=== PATIENT | male | born 1960 | race Caucasian/White ===

== ENCOUNTER 2022-09-17 09:50 | Outpatient (CLI) | payer BC, SELFPAY ==
[2022-09-17 19:46] LABS: Alanine Aminotransferase 40 U/L (6-50); Albumin Level 4.2 g/dL (3.5-5.1); Alkaline Phosphatase 76 U/L (38-126); Anion Gap 4 mmol/L (8-16); Aspartate Amino Transferase 61 U/L (17-59); Bilirubin,Total 0.6 mg/dL (0.2-1.3); Blood Urea Nitrogen 22 mg/dL (9-20); Carbon Dioxide 30 mmol/L (22-30); Chloride 102 mmol/L (98-107); Estimated Glomerular Filt Rate > 60; Glucose 92 mg/dL (65-110); Potassium 4.1 mmol/L (3.4-5.0); Sodium 136 mmol/L (137-145)
== END 2022-09-17 09:51 | disposition home or self-care (01) ==
LOC: ANHGOSHLAB 09:51
PROVIDERS: PCP Family Medicine; Visit Provider Family Medicine
DX: E78.5 Hyperlipidemia, unspecified (principal); I10 Essential (primary) hypertension; Z79.899 Other long term (current) drug therapy
CPT/HCPCS: 36415; 80053

== ENCOUNTER 2023-07-19 16:46 | Emergency (ER) | payer BC, SELFPAY ==
[2023-07-19 17:01] VITALS: BP 133/81; PULSE 100; RESP 12; TEMP 39.5; O2SAT 95
--- NOTE | 2023-07-19 17:14 | ED.URI ---
HPI - URI/Sore Throat General Chief Complaint: Upper Respiratory Infection Stated Complaint: fever,achiness Time Seen by Provider: 07/19/23 17:08 Source: patient and RN notes reviewed Mode of arrival: ambulatory Limitations: no limitations History of Present Illness HPI Narrative: Patient presents today complaining of fever up to 102, chills, congestion, postnasal drip. Symptoms began yesterday. Denies cough, sore throat, shortness of breath. He has been taking [place] cold and flu without much relief. He took a home COVID-19 test today that was negative. Related Data Home Medications Medication Instructions Recorded Confirmed calcium carbonate 600 mg calcium 600 mg PO DAILY 03/12/21 07/19/23 (1,500 mg) tablet (Calcium) multivitamin (Multiple Vitamins 1 tablet PO DAILY 03/12/21 07/19/23 tablet) Allergies Allergy/AdvReac Type Severity Reaction Status Date / Time No Known Allergies Allergy Unknown Verified 07/19/23 16:56 Review of Systems Review of Systems: CONSTITUTIONAL: + body aches, chills, fever. EYES: Denies visual changes, redness, or discharge. ENT: Denies rhinorrhea, sore throat, or otalgia.+ congestion, postnasal drip CARDIOVASCULAR: Denies chest pain, palpitations, or edema. RESPIRATORY: Denies cough or dyspnea. GASTROINTESTINAL: Denies abdominal pain, nausea, vomiting, or diarrhea. GENITOURINARY: Denies dysuria or hematuria. SKIN: Denies rash, itching, or wounds. MUSCULOSKELETAL: Denies back pain, joint pain, or myalgia. NEUROLOGIC: Denies headache, numbness, tingling, or weakness. PSYCH: Denies depression or anxiety. [facility] Past Medical History Medical History BPH NOS w/o ur obs/LUTS Depression Dyslipidemia Elevated lipids Environmental allergies Essential (primary) hypertension Hypogonadism in male KASH (obstructive sleep apnea) Recurrent herpes labialis Unspecified osteoarthritis, unspecified site Surgical History Surgical History History of bunionectomy (~1986) around History of knee surgery (~11/2015) left knee - 11/2015, left knee redone-03/24/22 History of vasectomy (~1998) around 1989 [place] teeth extracted (~1979) Family History Family History Other Family history of cardiovascular disease Hypertension Social History Social History Smoking status: Never smoker Second hand tobacco smoke exposure: No Alcohol intake: current Alcohol use details: consumes 2 drinks of beer or wine occasionally Substance use: never Substance use type: does not use Lack of Transportation: No Lack of Food: Never True Current Housing: I Have Housing Concerned About Future Housing: No Difficulty Paying Gas/Electric Bills: No Difficulty Paying for Meds: No Currently Unemployed: No Education: Bachelor's Degree Difficulty w/ Childcare or Family Care: No Gender identity (if verbalized by the patient): Male Comments At time of signature, I have reviewed and agree with nursing past medical, surgical, social and family history unless otherwise noted. Please see nursing chart for further information. There is no relevant family history pertinent to the presenting complaint Exam Narrative: GENERAL: Mildly ill-appearing, well-nourished, and in no acute distress. HEAD: Normocephalic, atraumatic. EYES: EOMI. No redness or drainage. Conjunctivae normal. ENT: Mucous membranes pink and moist. Nares congested. No rhinorrhea. TMs normal bilaterally. Throat normal. Uvula midline. NECK: Normal AROM. Supple. No lymphadenopathy. CHEST: No respiratory distress. Clear to auscultation. HEART: Regular rate and rhythm. No murmur appreciated. Normal peripheral pulses. EXTREMITIES: Normal range of motion. No ayse
== END 2023-07-19 17:27 | disposition home or self-care (01) ==
PROVIDERS: Emergency Provider Nurse Practitioner; PCP Family Medicine
DX: B34.9 Viral infection, unspecified (principal); N40.0 Benign prostatic hyperplasia without lower urinary tract symptoms; E78.5 Hyperlipidemia, unspecified; I10 Essential (primary) hypertension; M19.90 Unspecified osteoarthritis, unspecified site; F32.A Depression, unspecified; Z98.52 Vasectomy status
CPT/HCPCS: 87804; 99213; G0463

== ENCOUNTER 2024-11-05 00:34 | Day surgery (SDC) | payer BC, SELFPAY ==
[2024-10-29 06:41] VITALS: BMI 31.3
--- OUTSIDE RECORDS SUMMARY | 2024-11-05 00:38 | XMS_ITS | Encounter Summary ---
Author Organization [facility] Address [address] [place] [address]. [place], [place] [id number] [place] [address] Care Team Providers Care Swim Coach Name Role Phone Wander Nguyen MD Unavailable [phone] Miguel Santos MD Primary Care Provider Encounter Details Date Type Department Care Team (Late Contact Info) Description 03/12/2022 EngineLab Message Enc [facility] [facility], [address] [phone] [facility], [facility] Provider lab results Social History Tobacco Use Types Packs/Day Years Used Date Smoking Tobacco: Never Smokeless Tobacco: Never Alcohol Use Standard Drinks/Week Comments Yes 0 (1 standard drink = 0.6 oz pur e alcohol) Socially PHQ-2 Answer Date Recorded PHQ-2 Score - If the patient scores above 3, please move on to questions 3-9 0 12/19/2020 Sex and Gender Information Value Date Recorded Sex Assigned at Not on file Legal Sex Male 11:35 PM CDT Gender Identity Male 11/12/2021 4:53 AM MANAGER ARMY Sexual Orientation Straight 11/12/2021 4: 53 AM MANAGER ARMY 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, [address] [phone] Wander Nguyen MD [address] [place] [address] 06/01/2025 10:20 AM CDT Office Visit [facility] [address] [place] [address] Javier Johnson DO [address] [place] [address] documented as of this encounter Visit Diagnoses Not on filedocumented in this encounter Care Teams Swim Coach Relationship Specialty Start Date End Date Miguel Santos MD [address] [place] [address] PCP - General FAMILY PRACTICE 09/22/18 Wander Nguyen MD [address] [place] [address] [place] [employer] Stapler CARDIOVASCULAR DISEASE 03/06/16 documented as of this encounter
--- OUTSIDE RECORDS SUMMARY | 2024-11-05 00:38 | XMS_ITS | Clinical Summary ---
Author Organization [facility] Address [address], [facility] [address] [place] [address] Phone Care Team Providers Care Power Tong Operator Name Role Phone Miguel Santos MD Primary Care Provider Social History Tobacco Use Types Packs/Day Years Used Date Smoking Tobacco: Never Assessed Sex and Gender Information Value Date Recorded Sex Assigned at Not on file Legal Sex Male 8:05 AM CDT Gender Identity Not on file Sexual Orientation Not on file Plan of Treatment Health Maintenance Due Date Last Done Comments Hepatitis C Virus (HCV) Screening 1958 Cologuard 2008 Immunochemical Fecal Occult Blood 2008 Pneumococcal Immunization (50+ years) (1 of 1 - PCV) 2008 Zoster Immunization (1 of 2) 2008 PSA Discussion 2013 Influenza Immunization (#1) 2024 09/0 06/2020, 06/09/2019, 06/23/2018, Additional history exists SARS-COV-2 Immunization ( season) 2024 08/05/2021, 12/17/2020 Colonoscopy 07/26/2024 07/26/2019, 08/07/2009 Colorectal Cancer Screening 07/26/2024 Respiratory Syncytial Virus (RSV) Immunization (Adult) (1 - 1-dose 75+ series) 2033 07/26/2019, 08/07/2009 DTaP/Tdap/Td Immunization Discontinued 10/24/2014, 10/2003 TdaP Immunization Completed 10/24/2014 Hepatitis B Immunization Aged Out No longer eligible based on patient's age to complete this topic Meningococcal Immunization (ACWY) Aged Out No longer eligible based on patient's age to complete this topic Rotavirus Immunization Aged Out No lo nger eligible based on patient's age to complete this topic Procedures Procedure Name Priority Date/Time Associated Diagnosis Comments HM COLONOSCOPY Routine 07/26/2019 from Last 3 Months or Most Recently Relevant to Health Maintenance Results * HM COLONOSCOPY (07/26/2019) Alexander Martines DO PROCEDURE/MINOR SURGICAL ORDERA BLES Final Result from Last 3 Months or Most Recently Relevant to Health Maintenance Insurance Care Teams Power Tong Operator Relationship Specialty Start Date End Date Miguel Santos MD PCP - General Family Medicine 07/29/19
--- OUTSIDE RECORDS SUMMARY | 2024-11-05 00:38 | XMS_ITS | Referral Summary ---
Author Organization [facility] Address [address] [place] [address] Care Team Providers Care Chief Crew Scheduler Name Role Phone Miguel Santos MD Primary Care Provider Michael Green MD Unavailable [phone] Source Comments [facility],non-owned Affiliates and Associated Physician Practices is amultiple site organization consisting of ambulatory clinics and hospital sitesin [place], [place], [place] and [place]. This disclosure is being madepursuant to the Care Everywhere program and may not contain all information available regarding this patient. Last updated 18.[facility] Allergies No known active allergies Medications * Be aware that medications may not be up to date on this document. Alwaysverify current medications with the patient. Medication Sig Dispensed Refills Start Date End Date Status citalopram (CELEXA) 40 MG tablet 1 (one) tablet once daily 11/13/2021 Active finasteride (PROSCAR) 5 MG tablet once daily 12/24/2021 Active fluticasone propionate (FLONASE) 50 MCG/ACT nasal spray 1 (one) spray 2 times daily 11/13/2021 Active montelukast (SINGULAIR) 10 MG tablet at bedtime 11/13/2021 Active simvastatin (ZOCOR) 40 MG tablet at bedtime 10/26/2021 Active meloxicam (MOBIC) 7.5 MG tablet Take 1 (one) tablet by mouth 2 times daily as needed 11/12/2021 Active lisinopril (PRINIVIL; ZESTRIL) 5 MG tablet Take 1 (one) tablet by mouth once daily 02/14/2022 Active oxyBUTYnin CR 24hr (Ditropan-XL) 5 MG tablet Take 1 (one) tablet by mouth at bedtime 02/16/2024 Active Active Problems Problem Noted Date Diagnosed Date Status post left knee replacement 04/19/2022 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 2-4 times a month 03/29/2022 Q2: How many drinks containi ng alcohol do you have on a typical day when you are drinking? 1 or 2 03/29/2022 Q3: How often do you have si x or more drinks on one occasion? Never 03/29/2022 PHQ-2 Answer Date Recorded Patient Health Questionnaire-2 Score 0 03/25/2024 Sex and Gender Information Value Date Recorded Sex Assigned at Male 10/23/2021 7:10 PM PACKER INSULATION Gender Identity Male 10/23/2021 7:10 PM PACKER INSULATION Sexual Orientation Not on file Last Filed Vital Signs Vital Sign Reading Time Taken Comments Blood Pressure 107/73 03/29/2022 11:12 PM CDT Pulse 59 03/29/2022 11:12 PM CDT Temperature 36.6 ??C (97.88 ??F) 03/29/2022 11:12 PM CDT Respiratory Rate 16 03/30/2022 2:58 AM CDT Oxygen Saturation 98% 03/29/2022 11:12 PM CDT Inhaled Oxygen Concentration - - Weight 96.9 kg (213 lb 9.6 oz) 04/01/2024 10:21 AM CDT Height 180.3 cm (5' 11 ) 04/01/2024 10:21 AM CDT Body Mass Index 29.79 04/01/2024 10:21 AM CDT Functional Status Functional Status Response Date of Assess ment Is person deaf or have serious hearing difficult y? No 03/29/2022 Is person blind or have serious difficulty seein g? No 03/29/2022 Does person have serious dif ficulty walking/climbing stairs? Yes 03/29/2022 Does person have difficulty dressing/bathing? Ye s 03/29/2022 Cognitive Status Response Date of Assessm ent Does person have difficulty concentrating/remembering/making decisions? No 03/29/2022 Plan of Treatment Not on file Medical Devices Implanted Type Area Platform Inspector Device Identifier Shelf Expiration Date Model / Serial / Lot Igor Bone [place]-G Hv 40/20 Implanted:Qty: 2 on 03/29/2022 by Michael Green MD at [facility] Left: Knee [employer] 05/29/2023 [id number] / / [id number] Brng [id number] Vngrd 360 Pe Kn Post Implanted:Qty: 1 on 03/29/2022 by Michael Green MD at [facility] Left: Knee [employer] 16mm x79/83 mm 05/31/2026 [id number] / / [id number] Stem Tib 80mm 16mm Vngrd 360 Kn Spline Implanted:Qty: 1 on 03/29/2022 by Michael Green MD at [facility] Left: Knee [employer] 12/27/2029 [id number] / / [id number] Block Aug Vngrd 360 [id number] Kn Fem Rmll Implanted:Qty: 1 on 03/29/2022 by Michael Green MD at [facility] Left: Knee [employer] 03/29/2029 [id number] / / [id number] Block Aug Vngrd 360 Unv [id number] Kn Fem Implanted:Qty: 1 on 03/29/2022 by Michael Green MD at [facility] Left: Knee [employer] 01/27/2029 [id number] / / [id number] Aug Tib [id number] Vngrd 360 Kn Lt Mdl Rl Implanted:Qty: 1 on 03/29/2022 by Michael Green MD at [facility] Left: Knee [employer] 07/29/2025 [id number] / / [id number] Tray Tib 79mm Vngrd 360 Kn Por Rev Sys Implanted:Qty: 1 on 03/29/2022 by Michael Green MD at [facility] Left: Knee [employer] 08/29/2030 [id number] / / [id number] Splined Knee Stem V2 With Screw 12 Mm 120 Mm Implanted:Qty: 1 on 03/29/2022 by Michael Green MD at [facility] Left: Knee [employer] 06/29/2029 [id number] / / [id number] Aug Tib 31mm 31mm Med Cone Kn Trb Mtl Implanted:Qty: 1 on 03/29/2022 by Michael Green MD at [facility] Left: Knee [employer] 02/26/2026 [id number] / / [id number] Cmpnt Fem Kn Lt Vngrd 360 Por 75mm Rev Implanted:Qty: 1 on 03/29/2022 by Michael Green MD at [facility] Left: Knee [employer] 07/29/2028 [id number] / / [id number] Procedures Procedure Name Priority Date/Time Associated Diagnosis Comments COMPREHENSIVE METABOLIC PANEL STAT 03/05/2022 7:26 AM CDT Preop examination from Last 3 Months or Most Recently Relevant to Health Maintenance Results * (ABNORMAL) COMPREHENSIVE METABOLIC PANEL (03/05/2022 7:26 AM CDT) Glucose 107(H) 70 - 105 mg/dL 03/05/2022 7:49 AM CDT [facility] Sodium 141 136 - 145 mmol/L 03/05/2022 7:49 AM CDT [facility] Potassium 4.3 3.5 - 5.1 mmol/L 03/05/2022 7:49 AM CDT [facility] Chloride 110(H) 98 - 107 mmol/L 03/05/2022 7:49 AM CDT [facility] CO2 23 23 - 31 mmol/L 03/05/2022 7:49 AM CDT [facility] Calcium 9.1 8.4 - 10.4 mg/dL 03/05/2022 7:49 AM CDT [facility] Anion Gap 8 8 - 18 mmol/L 03/05/2022 7:49 AM CDT [facility] BUN 24 8.4 - 25.7 mg/dL 03/05/2022 7:49 AM CDT [facility] Creatinine 1.14 0.72 - 1.25 mg/dL 03/05/2022 7:49 AM CDT [facility] Alkaline Phosphatase 85 40 - 150 U/L 03/05/2022 7:49 AM CDT [facility] ALT 38 0 - 61 U/L 03/05/2022 7:49 AM CDT [facility] AST 42(H) 5 - 34 U/L 03/05/2022 7:49 AM CDT [facility] Protein Total 6.5 6.4 - 8.3 gm/dL 03/05/2022 7:49 AM CDT [facility] Albumin 4.0 3.2 - 4.6 gm/dL 03/05/2022 7:49 AM CDT [facility] Bilirubin Total 0.5 0.2 - 1.2 mg/dL 03/05/2022 7:49 AM CDT [facility] eGFR by CKD-EPI 72(L) >=90 mL/min/1.7 3 m2 03/05/2022 7:49 AM CDT [facility] Blood BLOOD SPECIMEN / Unknown Venipuncture / Unknown 03/05/2022 7:26 AM CDT 03/05/2022 7:30 AM CDT Nano Brooks PRACTICE ADMINISTRATOR-UPHOLSTERER APPRENTICE LAB - CHEMIS TRY ORDERABLES [facility] [address] [place] [address] from Last 3 Months or Most Recently Relevant to Health Maintenance Advance Directives Documents on File Type Date Recorded Patient Private Mortgage Banker Safe Expl anation Adv Directive/Living Will/POA 04/05/2022 1:17 PM * Full Code (Latest Code Status on File) Date Activated Date Inactivated Comments 03/29/2022 4:43 PM 03/30/2022 4:21 PM Care Teams Chief Crew Scheduler Relationship Specialty Start Date End Date Miguel Santos MD [address] [place] [address] PCP - General Family Medicine 01/10/22 [place] [id number] [address] Orthopedic Surgery 01/10/22
--- OUTSIDE RECORDS SUMMARY | 2024-11-05 00:38 | XMS_ITS | Referral Summary ---
Author Organization [facility] Address [address] [place] [address] Care Team Providers Care Hazardous Waste Technician Name Role Phone Miguel Santos MD Primary Care Provider Allergies No known active allergies Medications citalopram (CeleXA) 40 mg tablet TK 1 T PO QD 0 Active simvastatin (ZOCOR) 40 mg tablet TK 1 T PO QD IN THE [place]OH[place] 0 Active montelukast (SINGULAIR) 10 mg tablet TAKE 1 TABLET BY MOUTH EVERY NIGHT AT BEDTIME GENERIC EQUIVALENT FOR SINGULAIR 0 Active fluticasone propionate (FLONASE) 50 mcg/actuation nasal spray U ONE SPRAY IEN ONCE D 0 Active finasteride (PROSCAR) 5 mg tablet 1 tablet (5 mg total) Active meloxicam (MOBIC) 7.5 mg tablet Take 1 tablet (7.5 mg total) by mouth 2 (two) times a day as needed for pain 180 tablet 2 Active lisinopriL (PRINIVIL,ZESTR [place]) 5 mg tablet 4 Active Active Problems Problem Noted Date Diagnosed Date Essential hypertension 01/15/2024 Hyperlipidemia 01/15/2024 Loosening of prosthesis of left knee joint 01/10 CPAP (continuous positive airway pressure) shira vila 06/30/2018 Status post total knee replacement 12/26/2017 Fatigue 07/08/2016 Allergic rhinitis 01/24/2016 Obesity 11/02/2015 Arthritis 10/30/2015 KASH (obstructive sleep apnea) 10/30/2015 Social History Tobacco Use Types Packs/Day Years Used Date Smoking Tobacco: Never Tobacco Cessation:Counseling Given: Not Answered Alcohol Use Standard Drinks/Week Comments Yes 0 (1 standard drink = 0.6 oz pur e alcohol) Personal Safety Answer Date Recorded Getting School Help Needed Not on file 09/19 Sex and Gender Information Value Date Recorded Sex Assigned at Not on file Legal Sex Male 9:09 AM SEARCH STRATEGIST Gender Identity Male 02/23/2022 9:08 AM CDT Sexual Orientation Straight 02/23/2022 9: 08 AM CDT 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 Not on file Not on file Last Filed Vital Signs Vital Sign Reading Time Taken Comments Blood Pressure 133/78 01/15/2024 11:18 AM CDT Pulse 59 01/15/2024 11:18 AM CDT Temperature 36.6 ??C (97.8 ??F) 01/15/2024 11:18 AM C DT Respiratory Rate 14 01/15/2024 11:18 AM CDT Oxygen Saturation 96% 01/15/2024 11:18 AM CDT Inhaled Oxygen Concentration - - Weight 104 kg (229 lb 4.8 oz) 01/15/2024 11:18 A M CDT Height 177.8 cm (5' 10 ) 01/15/2024 11:18 AM CDT Body Mass Index 32.9 01/15/2024 11:18 AM CDT Plan of Treatment Not on file Insurance [employer] Care Teams Hazardous Waste Technician Relationship Specialty Start Date End Date Miguel Santos MD PCP - General Family Practice 12/18/20
--- OUTSIDE RECORDS SUMMARY | 2024-11-05 00:38 | XMS_ITS | Clinical Summary ---
Author Organization [facility] Address [address] [place] [address] Care Team Providers Care Width Stripper Name Role Phone Miguel Santos MD Primary [...] Arthritis 10/30/2015 KASH (obstructive sleep apnea) 10/30/2015 Surgical History Surgery Date Site/Laterality Comments JOINT REPLACEMENT 11/24/2017 Left total knee Medical History Medical History Date Comments Hypercholesteremia Hypertension Depression DDD (degenerative disc disease), lumbar Lumbar facet arthropathy Lumbar stenosis Family History Medical History Relation Name Comments Arthritis Other Hypertension Other Stroke Other Relation Name Status Comments Other Social History Tobacco Use Types Packs/Day Years [...] on file Legal Sex Male 9:09 AM GASTROENTEROLOGY TECHNICIAN Gender Identity Male 02/23/2022 9:08 AM CDT Sexual Orientation Straight 02/23/2022 9: 08 AM CDT 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 Not on file Not on file Obstetrics History Last Filed Vital Signs Vital Sign Reading [...] 01/15/2024 11:18 AM CDT Plan of Treatment Health Maintenance Due Date Last Done Comments Colon Cancer Screening-Colonoscopy 1960 Depression Screening 1958 Fall Risk Assessment 1960 Hepatitis C Screening 1960 Prostate Cancer Screening-PSA 1958 Hepatitis B Screening 1976 Zoster Vaccine (1 of 2) 2008 Pneumococcal vaccine 65+ (1 of 1 - PCV) 2023 Well Visit 65+ 2023 Influenza Vaccine (#1) 2024 0, 06/10/2019, 06/09/2019, Additional history exists DTaP/Tdap/Td Vaccine (2 - Td or Tdap) 10/24/2024 10/24/2014, 10/06/2003 Insurance [employer] ID [employer] ID Care Teams Width Stripper Relationship Specialty Start Date End Date Miguel Santos MD PCP - General Family Practice 12/18/20
--- OUTSIDE RECORDS SUMMARY | 2024-11-05 00:38 | XMS_ITS | Clinical Summary ---
Author Organization [facility] Address [address] [place] [address]. [place] [address] [place] [address] Care Team Providers Care Tick Eradicator Name Role Phone Wander Nguyen MD Unavailable [phone] Miguel Santos MD Primary Care Provider Allergies No known active allergies Medications Calcium Citrate-Vitamin D (CALCIUM + D OR) Take 1 tablet by mouth daily. 5 Active Multiple Vitamins-Minera ls (MULTIVITAMIN ADULT) Tab Take 1 tablet by mouth daily. 5 Active simvastatin 40 MG tablet simvastatin tablet 40 mg; take 1 tablet by mouth at bedtime; 0; -Aug-2015; Active 5 Active finasteride 5 MG tablet Take 1 tablet (5 mg total) by mouth daily. 8 Active fluticasone propionate 50 MCG/ACT nasal sprayIndication s:Allergic rhinitis 1 spray by Nasal route 2 (two) times a day. 1 mL 3 0 Active montelukast 10 MG tabletIndicatio ns:Allergic rhinitis TAKE 1 TABLET BY MOUTH EVERY NIGHT AT BEDTIME GENERIC EQUIVALENT FOR SINGULAIR 90 tablet 2 1 Active meloxicam 7.5 MG tablet Take 1 tablet (7.5 mg total) by mouth 2 (two) times daily as needed. 2 Active lisinopril (PRINIVIL) 5 MG tablet Take 1 tablet (5 mg total) by mouth daily. 90 tablet 1 2 Active vitamin E 450 MG (1000 UT) Cap Take 1 capsule (1,000 Units total) by mouth daily. 3 Active citalopram (CELEXA) 20 MG tablet Take 1 tablet (20 mg total) by mouth daily. 3 Active MYRBETRIQ 50 MG 24 hr tablet Take 1 tablet (50 mg total) by mouth daily. 4 Active Active Problems Problem Noted Date Diagnosed Date History of total left knee replacement 0 CPAP (continuous positive airway pressure) depen dence 06/30/2018 Fatigue 07/08/2016 Allergic rhinitis 01/24/2016 Obesity 11/02/2015 Arthritis 10/30/2015 KASH (obstructive sleep apnea) 10/30/2015 Essential hypertension Hyperlipidemia Immunizations Name Administration Dates Next Due Afluria 36 MONTHS+ (Prefilled Syringe IIV4) 02/2019 Flucelvax 6 Months+ (Prefilled Syringe) 06/18/20 Influenza Adult (Generic) 06/23/2018,07/07/2017, 07/16/2016 Td (Tenivac) preservative free 10/06/2003 Tdap (Generic) 10/24/2014 Family History Medical History Relation Comments Hypertension Mother Stroke Mother Relation Status Comments Father Maternal Grandfather Maternal Grandmother Mother (Age 91) Paternal Grandfather Paternal Grandmother Social History Tobacco Use Types Packs/Day Years Used Date Smoking Tobacco: Never Smokeless Tobacco: Never Tobacco Cessation:Counseling Given: Yes Alcohol Use Standard Drinks/Week Comments Yes 0 (1 standard drink = 0.6 oz pur e alcohol) Socially PHQ-2 Answer Date Recorded Patient Health Questionnaire-2 Score 0 05/06/2024 Sex and Gender Information Value Date Recorded Sex Assigned at Not on file Legal Sex Male 11:35 PM CDT Gender Identity Male 11/12/2021 4:53 AM HOST AND HOSTESS Sexual Orientation Straight 11/12/2021 4: 53 AM HOST AND HOSTESS 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 Not on file Not on file Last Filed Vital Signs Vital Sign Reading Time Taken Comments Blood Pressure 115/84 05/06/2024 10:17 AM CDT Pulse 65 05/06/2024 10:17 AM CDT Temperature 36.6 ??C (97.8 ??F) 05/06/2024 10:17 AM C DT Respiratory Rate 14 05/06/2024 10:17 AM CDT Oxygen Saturation 96% 05/06/2024 10:17 AM CDT ra Inhaled Oxygen Concentration - - Weight 100.7 kg (222 lb) 05/06/2024 10:17 AM CDT Height 177.8 cm (5' 10 ) 05/06/2024 10:17 AM CDT Body Mass Index 31.85 05/06/2024 10:17 AM CDT Plan of Treatment Upcoming Encounters Date Type Department Care Team (Late st Contact Info) Description 01/07/2025 10:30 AM CDT Office Visit [facility] [address] [facility] [place] [address] Wander Nguyen MD [facility] [place] [address] 06/01/2025 10:20 AM CDT Office Visit [facility] [address] [place] [address] Javier Johnson DO [address] [place] [address] Health Maintenance Due Date Last Done Comments Colorectal Cancer Screening Colonoscopy (10 Years) 1958 Hepatitis C 1976 Zoster Vaccines (1 of 2) 2008 Pneumococcal Vaccine: 65+ Years (1 of 1 - PCV) 2023 COVID-19 Vaccine ( - season) 2024 Influenza Adult (#1) 2024 06/18/2020, 06/10/2019, 06/23/2018, Additional history exists PHQ-2 (Physician [place]) 10/06/2024 05/06/2024 DTaP, Tdap and Td Vaccines (2 - Td or Tdap) 10/24/2024 10/24/2014, 10/06/2003 PHQ-2 (Physician [place]) 05/06/2025 05/06/2024 RSV Immunization or 60+ Years (1 - 1-dose 75+ series) 2033 Meningococcal B Vaccine Aged Out No l onger eligible based on patient's age to complete this topic Meningococcal Vaccine Aged Out No tiffany petra eligible based on patient's age to complete this topic RSV Immunizations Under 20 Months Aged Out No longer eligible based on patient's age to complete this topic Insurance Care Teams Tick Eradicator Relationship Specialty Start Date End Date Miguel Santos MD [address] [address] PCP - General FAMILY PRACTICE 09/22/18 Wander Nguyen MD [address] [address] [place] [employer] [facility] CARDIOVASCULAR DISEASE 03/06/16
--- OUTSIDE RECORDS SUMMARY | 2024-11-05 00:38 | XMS_ITS ---
Author Organization Unknown Address [address] [place], [place] [id number] Phone Care Team Providers Care Fresco Artist Name Role Phone NICHOLAS YOST CC Attending Unavailable Immunization Immunization Date Status Additional Notes Code Code System COVID-19 vaccine, vector-nr, rS-Ad26, PF, 0.5 mL 12/17/2020 Completed 212 CVX COVID-19, mRNA, LNP-S, PF, 1 00 mcg/0.5mL dose or 50 mcg/0.25mL dose 08/05/2021 Completed 207 CVX zoster recombinant 08/05/2021 Completed 187 CVX zoster recombinant 05/28/2021 Completed 187 CVX Influenza, MDCK, quadrivalen t, PF 06/14/2020 Completed 171 CVX Influenza, split virus, quadrivalent, PF 06/09/2019 Completed 150 CVX Influenza, split virus, quadrivalent, PF 06/23/2018 Completed 150 CVX Influenza, split virus, quadrivalent, PF 07/07/2017 Completed 150 CVX Influenza, split virus, quadrivalent, PF 07/16/2016 Completed 150 CVX Tdap 10/24/2014 Completed 115 CVX Td (adult), 5 Lf tetanus toxoid, preservative free, adsorbed 10/06/2003 Completed 113 CVX Social History Type Status Start Date End Date Code Code Syst em Smoking History Never smoker (Never Smoked) 768108280 SNOMED CT Sex Male Assessment You had the following problems:STRAIN OF MUSCLE AND TENDON OF BACK WALL OF THORAX, INITIAL ENCOUNTERENCOUNTER FOR OTHER SPECIFIED AFTERCARE Hospital Discharge Instructions Should you have any questions prior to discharge, please contact a member of your healthcare team. If you have left the hospital and have any questions, please contact your primary care physician. Reason For Referral No Data Found Problems Problem Start Date Resolved Date Status Code Code System STRAIN OF MUSCLE AND TENDON OF BACK WALL OF THORAX, INITIAL ENCOUNTER active 563227744 SNOMED-CT ENCOUNTER FOR OTHER SPECIFIE D AFTERCARE active 679116744 SNOMED-CT Allergies and Adverse Reactions Allergy Substance Reaction Severity Start Date Concern Status Co de Code System No Known Drug Allergy Mild Active No Known Drug Allergies Active [id number] SNOMED-CT Plan of Treatment No Data Found Encounters Encounter Diagnosis Start Date Code Code Sys tem History and physical examination, pre-employment 06/18 [id number] SNOMED-CT Personal Care Team Section Performer Name Performer Role Active Date Inactive Da te
--- OUTSIDE RECORDS SUMMARY | 2024-11-05 00:38 | XMS_ITS | Patient Health Summary ---
Author Organization [facility] Address [address] [place] [address] Care Team Providers Care Meeting Specialist Name Role Phone Miguel Sanots MD Primary Care Provider Michael Green MD Unavailable [phone] Note from [facility],non-owned Affiliates and Associated Physician Practices is amultiple site organization consisting of ambulatory clinics and hospital sitesin [place], [place], [place] and [place]. This disclosure is being madepursuant to the Care Everywhere program and may not contain all information available regarding this patient. Last updated 18.[facility] Allergies No known active allergies Medications * Be aware that medications may not be up to date on this document. Alwaysverify current medications with the patient. * citalopram (CELEXA) 40 MG tablet(Started 11/13/2021) 1 (one) tablet once daily * finasteride (PROSCAR) 5 MG tablet(Started 12/24/2021) once daily * fluticasone propionate (FLONASE) 50 MCG/ACT nasal spray(Started 11/13/2021) 1 (one) spray 2 times daily * montelukast (SINGULAIR) 10 MG tablet(Started 11/13/2021) at bedtime * simvastatin (ZOCOR) 40 MG tablet(Started 10/26/2021) at bedtime * meloxicam (MOBIC) 7.5 MG tablet(Started 11/12/2021) Take 1 (one) tablet by mouth 2 times daily as needed * lisinopril (PRINIVIL; ZESTRIL) 5 MG tablet(Started 02/14/2022) Take 1 (one) tablet by mouth once daily * oxyBUTYnin CR 24hr (Ditropan-XL) 5 MG tablet(Started 02/16/2024) Take 1 (one) tablet by mouth at bedtime Active Problems Problem Noted Date Diagnosed Date [...] Sex Assigned at Male 10/23/2021 7:10 PM MANAGER HEALTH Gender Identity Male 10/23/2021 7:10 PM MANAGER HEALTH Sexual Orientation Not on file Last Filed [...] Mass Index 29.79 04/01/2024 10:21 AM CDT Medical Devices Implanted Type Area Medical Physics Professor Device Identifier Shelf Expiration Date Model / Serial / Lot Igor Bone [place]-G Hv 40/20 Implanted:Qty: 2 on 03/29/2022 by Michael Green MD at [facility] Left: Knee [employer] 05/29/2023 [id number] / / [id number] Brng [id number] Vngrd 360 Pe Kn Post Implanted:Qty: 1 on 03/29/2022 by Michael Green MD at [facility] Left: Knee [employer] 16mm x79/83 mm 05/31/2026 [id number] / / [id number] Stem Tib 80mm 16mm Vngrd 360 Kn Spline Implanted:Qty: 1 on 03/29/2022 by Michael Green MD at [facility] Left: Knee [employer] 12/27/2029 [id number] / / [id number] Block Aug Vngrd 360 [id number] Kn Fem Rmll Implanted:Qty: 1 on 03/29/2022 by Michael Green MD at [facility] Left: Knee [employer] 03/29/2029 [id number] / / [id number] Block Aug Vngrd 360 Unv [id number] Kn Fem Implanted:Qty: 1 on 03/29/2022 by Michael Green MD at [facility] Left: Knee [employer] 01/27/2029 [id number] / / [id number] Aug Tib [id number] Vngrd 360 Kn Lt Mdl Rl Implanted:Qty: 1 on 03/29/2022 by Michael Green MD at [facility] Left: Knee [employer] 07/29/2025 [id number] / / [id number] Tray Tib 79mm Vngrd 360 Kn Por Rev Sys Implanted:Qty: 1 on 03/29/2022 by Michael Green MD at [facility] Left: Knee [employer] 08/29/2030 [id number] / / [id number] Splined Knee Stem V2 With Screw 12 Mm 120 Mm Implanted:Qty: 1 on 03/29/2022 by Michael Green MD at [facility] Left: Knee [employer] 06/29/2029 [id number] / / [id number] Aug Tib 31mm 31mm Med Cone Kn Trb Mtl Implanted:Qty: 1 on 03/29/2022 by Michael Green MD at [facility] Left: Knee [employer] 02/26/2026 [id number] / / [id number] Cmpnt Fem Kn Lt Vngrd 360 Por 75mm Rev Implanted:Qty: 1 on 03/29/2022 by Michael Green MD at [facility] Left: Knee [employer] 07/29/2028 [id number] / / [id number] Procedures * XR KNEE LEFT 3VW(Performed 04/01/2024) Performed for History of revision of total replacement of left knee joint * XR KNEE LEFT 3VW(Performed 05/06/2023) Performed for Status post revision of total replacement of left knee * XR KNEE LEFT 3VW(Performed 06/20/2022) Performed for History of revision of total replacement of left knee joint * XR KNEE LEFT 3VW(Performed 04/19/2022) Performed for Status post left knee replacement * APHERESIS/TRANSFUSION ORDER(Performed 04/05/2022) * CULTURE TISSUE+GRAM STAIN(Performed 03/29/2022) Performed for Diagnosis unknown * CULTURE ANAEROBE(Performed 03/29/2022) Performed for Diagnosis unknown * CULTURE TISSUE+GRAM STAIN(Performed 03/29/2022) Performed for Diagnosis unknown * CULTURE ANAEROBE(Performed 03/29/2022) Performed for Diagnosis unknown * ENDOTRACHEAL TUBE NOTE(Performed 03/29/2022) * ARTHROPLASTY TOTAL KNEE REVISION(Performed 03/29/2022) * BLOOD TYPE VERIFICATION(Performed 03/29/2022) * TYPE + SCREEN PANEL(Performed 03/29/2022) Performed for Preop examination * EKG 12-LEAD(Performed 03/05/2022) Performed for Preop examination * COMPREHENSIVE METABOLIC PANEL(Performed 03/05/2022) Performed for Preop examination * C-REACTIVE PROTEIN(Performed 01/16/2022) Performed for Mechanical loosening of internal left knee prosthetic joint, initial encounter ([facility]) * ERYTHROCYTE SEDIMENTATION RATE(Performed 01/16/2022) Performed for Mechanical loosening of internal left knee prosthetic joint, initial encounter ([facility]) * CBC W AUTO DIFFERENTIAL(Performed 01/16/2022) Performed for Mechanical loosening of internal left knee prosthetic joint, initial encounter ([facility]) * SYNOVASURE (PJI)(Performed 01/14/2022) * XR KNEE LEFT 3VW(Performed 01/10/2022) Performed for Chronic pain of left knee Results * XR KNEE LEFT 3VW (04/01/2024 10:15 AM CDT) Only the most recent of5 resultswithin the time period is included. Narrative [facility] [address] - 04/01/2024 10:15 AM CDT Please see progress note in Epic for results. Michael Green MD DIAGNOSTIC IMAGING O [place] Performing Organization Address [facility]/ZIP Co de Phone Number [facility] [address] * APHERESIS/TRANSFUSION ORDER (04/05/2022 9:19 AM CDT) Narrative 04/05/2022 9:19 AM CDT Ordered by an unspecified provider. Scanned Document NURSING - VITAL SIGN S AND ASSESSMENT * CULTURE TISSUE+GRAM STAIN (03/29/2022 12:38 PM CDT) Only the most recent of2 resultswithin the time period is included. Culture No growth JUANJO 04/01/2022 6:42 PM CDT [facility] Gram Stain Moderate Polymorphonuclear cells 04/01/2022 6:42 PM CDT [facility] Gram Stain No organisms seen 022 6:42 PM CDT [facility] Microbiology TISSUE SPECIMEN / Unknown 03/29/2022 12:38 PM CDT 03/29/2022 12:49 PM CDT Narrative [facility] - 04/01/2022 6:42 PM CDT Surgical Description: Deep Synovium Left Knee Michael Green MD LAB - MICROBIOLOGY O [place] Performing Organization Address City/[facility]/ZIP Co de Phone Number [facility] [address] [place] [address], [facility] [phone] * CULTURE ANAEROBE (03/29/2022 12:38 PM CDT) Only the most recent of2 resultswithin the time period is included. Culture No anaerobic organisms isolated JUANJO 04/04/2022 10:40 AM CDT [facility] Microbiology TISSUE SPECIMEN / Unknown 03/29/2022 12:38 PM CDT 03/29/2022 12:49 PM CDT Narrative [facility] - 04/04/2022 10:40 AM CDT Surgical Description: Deep Synovium Left Knee Michael Green MD LAB - MICROBIOLOGY O RDERABLES [facility] [address] [place] [address], [facility] [phone] * ETT LINE PERFORMABLE (03/29/2022 11:27 AM CDT) Narrative Sarah Proctor APRN-FUEL CELL SYSTEMS ENGINEER - 03/29/2022 11:27 AM CDT Sarah Proctor APRN-FUEL CELL SYSTEMS ENGINEER ? 03/29/2022 11:27 AM Endotracheal Tube Placement: ? Patient Location: OR. Intubation Event Date/Time: ??03/29/2022 11:10 AM Procedure: intubation (44086). Procedure Section: ?? Sedation: under general anesthesia. Indications for Airway Management: ??anesthesia Procedure pretreatments used? ??No Induction: standard IV Patient Position: ??sniffing Mask Ventilation: easy. Blade Type: Edmond Blade Size: 4 Laryngoscopy View: grade 1 (full cords) Tube: endotracheal tube Placement: oral Tube type: cuff - inflated Tube Size (MM): 8 Depth of Insertion (CM): 23 Measured From: lips Cuff volume (mL): ??10 Cuff Inflated With: air Number of Attempts: 1. Placement Verified By: direct visualization, bilateral breath sounds, chest auscultation and CO2 monitor Tube secured with: ??adhesive tape. Dentition unchanged? ??Yes Difficult Airway? ??No. Procedure Start Time: 03/29/2022 11:10 AM. Staff Section ? Anesthesia Provider: Sarah Proctor, CHANG-MARCO, Performed the procedure Fozia Washington MD GENERAL ANESTHESI A ORDERABLES * BLOOD TYPE VERIFICATION (03/29/2022 10:33 AM CDT) ABO Rh O POS 03/29/2022 11:39 AM CDT [facility] Blood Bank BLOOD SPECIMEN / Unknown Venipuncture / Unknown 03/29/2022 10:33 AM CDT 03/29/2022 10:38 AM CDT Jessi Hassan LAB - BLOOD BANK ORD Plan B LabsBLES Performing Organization Address City/[facility]/ZIP Co de Phone Number [facility] [address] [place] [address] * TYPE + SCREEN PANEL (03/29/2022 10:18 AM CDT) ABO Rh O POS 03/29/2022 11:39 AM CDT [facility] Comment:No history; collect retype. Antibody Screen NEG 11:39 AM CDT [facility] Blood Bank BLOOD SPECIMEN / Unknown Venipuncture / Unknown 03/29/2022 10:18 AM CDT 03/29/2022 10:30 AM CDT Jessi Hassan LAB - BLOOD BANK WikinvestBLES Performing Organization Address City/[facility]/ZIP Co de Phone Number [facility] [address] [place] [address] * EKG 12-LEAD (03/05/2022 7:51 AM CDT) Ventricular Rate 65 BPM [facility] Atrial Rate 65 BPM [facility] P-R Interval 152 ms [facility] QRS Duration ms 86 ms [facility] Q-T Interval ms 402 ms [facility] QTC Calculation (Bezet) 418 ms [facility] Calculated P Warren 45 degrees [facility] Calculated R Warren 19 degrees [facility] Calculated T Warren 45 degrees [facility] Interpretation EKG Normal sinus rhythm Normal ECG No previous ECGs available Confirmed by GARTH HUMPHREY MD ([id number]) on 03/05/2022 1:42:55 PM [facility] 03/05/2022 7:51 AM CDT 03/05/2022 1:42 PM CDT Jessi Leslie Hassan DO ECG ORDERABLES [facility] * (ABNORMAL) COMPREHENSIVE METABOLIC PANEL (03/05/2022 7:26 AM CDT) Glucose 107(H) 70 - 105 mg/dL 03/05/2022 7:49 AM CDT [facility] Sodium 141 136 - 145 mmol/L 03/05/2022 7:49 AM T [facility] Potassium 4.3 3.5 - 5.1 mmol/L 03/05/2022 7:49 AM T [facility] Chloride 110(H) 98 - 107 mmol/L 03/05/2022 7:49 AM T [facility] CO2 23 23 - 31 mmol/L 03/05/2022 7:49 AM CDT [facility] Calcium 9.1 8.4 - 10.4 mg/dL 03/05/2022 7:49 AM T [facility] Anion Gap 8 8 - 18 mmol/L 03/05/2022 7:49 AM T [facility] BUN 24 8.4 - 25.7 mg/dL 03/05/2022 7:49 AM CDT [facility] Creatinine 1.14 0.72 - 1.25 mg/dL 03/05/2022 7:49 AM [facility] Alkaline Phosphatase 85 40 - 150 U/L 03/05/2022 7:49 AM CDT [facility] ALT 38 0 - 61 U/L 03/05/2022 7:49 AM T [facility] AST 42(H) 5 - 34 U/L 03/05/2022 7:49 AM [facility] Protein Total 6.5 6.4 - 8.3 gm/dL 03/05/2022 7:49 AM T [facility] Albumin 4.0 3.2 - 4.6 gm/dL 03/05/2022 7:49 AM CDT [facility] Bilirubin Total 0.5 0.2 - 1.2 mg/dL 03/05/2022 7:49 AM CDT [facility] eGFR by CKD-EPI 72(L) >=90 mL/min/1.7 3 m2 03/05/2022 7:49 AM CDT [facility] Blood BLOOD SPECIMEN / Unknown Venipuncture / Unknown 03/05/2022 7:26 AM CDT 03/05/2022 7:30 AM CDT Nano Brooks CLERK GENERAL OFFICE-[place] SUPERVISOR LAB - CHEMIS TRY ORDERABLES Performing Organization Address City/[facility]/ZIP Co de Phone Number [facility] [address] [place] [phone] * C-REACTIVE PROTEIN (01/16/2022 10:40 AM CDT) C-Reactive Protein <1 0 - 10 mg/L [facility] ACCOUNT BILL Comment:FASTING Blood BLOOD SPECIMEN / Unknown 01/16/2022 10:40 AM CDT 01/16/2022 Narrative Resulting Agency Comment Lab Testing performed at: [facility] [address] ??[facility] [id number] Michael Green MD LAB - CHEMISTRY ORDE RABNATHAN Performing Organization Address City/[facility]/ZIP Co de Phone Number [facility] ACCOUNT BILL [address] [place] [address] * ERYTHROCYTE SEDIMENTATION RATE (01/16/2022 10:40 AM CDT) Erythrocyte Sedimentation Rate Westergren 2 0 - 30 mm/hr [facility] ACCOUNT BILL Comment:FASTING Blood BLOOD SPECIMEN / Unknown 01/16/2022 10:40 AM CDT 01/16/2022 Narrative Resulting Agency Comment Lab Testing performed at: [facility] [address] ??[facility] [id number] Michael Green MD LAB - HEMATOLOGY ORD ERABLES [facility] ACCOUNT BILL [address] [place] [address] * CBC WITH DIFFERENTIAL (01/16/2022 10:40 AM CDT) WBC 3.4 3.4 - 10.8 x10E3/uL [facility] ACCOUNT BILL RBC 4.98 4.14 - 5.80 x10E6/uL [facility] ACCOUNT BILL Hemoglobin 14.9 13.0 - 17.7 g/dL [facility] ACCOUNT BILL Hematocrit 45.4 37.5 - 51.0 % [facility] ACCOUNT BILL MCV 91 79 - 97 fL [facility] ACCOUNT BILL MCH 29.9 26.6 - 33.0 pg [facility] ACCOUNT BILL MCHC 32.8 31.5 - 35.7 g/dL [facility] ACCOUNT BILL RDW 12.8 11.6 - 15.4 % [facility] ACCOUNT BILL Platelet Count 250 150 - 450 x10E3/uL [facility] ACCOUNT BILL Granulocytes % 60 Not Estab. % [facility] ACCOUNT BILL Lymphocytes % 24 Not Estab. % [facility] ACCOUNT BILL Monocytes % 10 Not Estab. % [facility] ACCOUNT BILL Eosinophils % 5 Not Estab. % [facility] ACCOUNT BILL Basophils % 1 Not Estab. % [facility] ACCOUNT BILL Immature Cells NOT NEEDED [facility] ACCOUNT BILL Comment:Ancillary determined the test is not needed. Granulocytes Absolute 2.0 1.4 - 7.0 x10E3/uL [facility] ACCOUNT BILL Lymphocytes Absolute 0.8 0.7 - 3.1 x10E3/uL [facility] ACCOUNT BILL Monocytes Absolute 0.3 0.1 - 0.9 x10E3/uL [facility] ACCOUNT BILL Eosinophils Absolute 0.2 0.0 - 0.4 x10E3/uL [facility] ACCOUNT BILL Basophils Absolute 0.0 0.0 - 0.2 x10E3/uL [facility] ACCOUNT BILL Immature Granulocytes 0 Not Estab. % [facility] ACCOUNT BILL Immature Granulocytes Absolute 0.0 0.0 - 0.1 x10E3/uL [facility] ACCOUNT BILL nRBC NOT NEEDED [facility] ACCOUNT BILL Comment:Ancillary determined the test is not needed. Comment Hematology NOT NEEDED [facility] ACCOUNT BILL Comment: FASTING Ancillary determined the test is not needed. Blood BLOOD SPECIMEN / Unknown 01/16/2022 10:40 AM CDT 01/16/2022 Narrative Resulting Agency Comment Lab Testing performed at: [facility] [address] ??[facility] [phone] Michael Green MD LAB - HEMATOLOGY ORD ERABLES [facility] ACCOUNT BILL [address] [place] [address] * SYNOVASURE (PJI) (01/14/2022) Fluid SYNOVIAL FLUID / Unknown Michael Green MD LAB - BODY FLUID ORD ERABLES Care Teams Meeting Specialist Relationship Specialty Start Date End Date Miguel Santos MD [address] [place] [address] PCP - General Family Medicine 01/10/22 [place] [id number] [phone] Orthopedic Surgery 01/10/22
--- OUTSIDE RECORDS SUMMARY | 2024-11-05 00:38 | XMS_ITS | Clinical Summary ---
Author Organization [facility] Address [address] [place] [address] Care Team Providers Care Car Runner Name Role Phone Miguel Santos MD Primary Care Provider Michael Green MD Unavailable [phone] Source Comments [facility],non-owned Affiliates and Associated Physician Practices is amultiple site organization consisting of ambulatory clinics and hospital sitesin [place], [place], [place] and [place]. This disclosure is being madepursuant to the Care Everywhere program and may not contain all information available regarding this patient. Last updated 18.[facility] Allergies No known active allergies Medications * [...] Sex Assigned at Male 10/23/2021 7:10 PM LABORATORY TECHNICAL SPECIALIST Gender Identity Male 10/23/2021 7:10 PM LABORATORY TECHNICAL SPECIALIST Sexual Orientation Not on file Last Filed [...] Mass Index 29.79 04/01/2024 10:21 AM CDT Plan of Treatment Health Maintenance Due Date Last Done Comments ARLEN (AGES 45-75) - COLON CA SCREENING 1960 COLON MONITORING 1958 COLONOSCOPY - COLON CA SCREENING 1958 CT COLONOGRAPHY - COLON CA SCREENING 1958 Colorectal Cancer Screening 1958 FIT - COLON CA SCREENING 1958 FLEX SIG - COLON CA SCREENING 1958 HEPATITIS C SCREENING 07/10/1976 DTAP/TDAP/TD VACCINES (1 - Tdap) 1977 PNEUMOCOCCAL VACCINE 50+ (1 of 1 - PCV) 2008 ZOSTER VACCINE (1 of 2) 2008 COVID-19 VACCINE (3 - season) 2024 08/05/2021, 12/17/2020 INFLUENZA VACCINE (#1) 2024 , 06/10/2019, 06/23/2018, Additional history exists DEPRESSION SCREENING 10/06/2024 04/01/2024 SCREENING FOR DIABETES 03/05/2025 03/05/2022 Respiratory Syncytial Virus (RSV) Vaccine Pt: or over 60 yrs (1 - 1-dose 75+ series) 2033 HEPATITIS B VACCINE Aged Out No longe r eligible based on patient's age to complete this topic HIB VACCINE Aged Out No longer eligi ble based on patient's age to complete this topic HPV VACCINE Aged Out No longer eligi ble based on patient's age to complete this topic MENINGOCOCCAL (Group B) VACCINE Aged Out No longer eligible based on patient's age to complete this topic MENINGOCOCCAL VACCINE Aged Out No tiffany petra eligible based on patient's age to complete this topic Medical Devices Implanted Type Area Vehicle Inspector Device Identifier Shelf Expiration Date Model / Serial / Lot Igor Bone Wyaconda-G Hv 40/20 Implanted:Qty: 2 on 03/29/2022 by Michael Green MD at [facility] Left: Knee [employer] 05/29/2023 [id number] / / [id number] Brng [id number] Vngrd 360 Pe Kn Post Implanted:Qty: 1 on 03/29/2022 by Michael Green MD at [facility] Left: Knee [employer] 16mm x79/83 mm 05/31/2026 [id number] / / [id number] Stem Tib 80mm 16mm Vngrd 360 Kn Spline Implanted:Qty: 1 on 03/29/2022 by Michael Green MD at [facility] Left: Knee [employer] 12/27/2029 [id number] / / [id number] Block Aug Vngrd 360 [id number] Kn Fem Rmll Implanted:Qty: 1 on 03/29/2022 by Michael Green MD at [facility] Left: Knee [employer] 03/29/2029 [id number] / / [id number] Block Aug Vngrd 360 Unv [id number] Kn Fem Implanted:Qty: 1 on 03/29/2022 by Michael Green MD at [facility] Left: Knee [employer] 01/27/2029 [id number] / / [id number] Aug Tib [id number] Vngrd 360 Kn Lt Mdl Rl Implanted:Qty: 1 on 03/29/2022 by Michael Green MD at [facility] Left: Knee [employer] 07/29/2025 [id number] / / [id number] Tray Tib 79mm Vngrd 360 Kn Por Rev Sys Implanted:Qty: 1 on 03/29/2022 by Michael Green MD at [facility] Left: Knee [employer] 08/29/2030 [id number] / / [id number] Splined Knee Stem V2 With Screw 12 Mm 120 Mm Implanted:Qty: 1 on 03/29/2022 by Michael Green MD at [facility] Left: Knee [employer] Inc 06/29/2029 [id number] / / [id number] Aug Tib 31mm 31mm Med Cone Kn Trb Mtl Implanted:Qty: 1 on 03/29/2022 by Michael Green MD at [facility] Left: Knee [employer] 02/26/2026 [id number] / / [id number] Cmpnt Fem Kn Lt Vngrd 360 Por 75mm Rev Implanted:Qty: 1 on 03/29/2022 by Michael Green MD at [facility] Left: Knee [employer] 07/29/2028 [id number] / / [id number] Procedures Procedure Name Priority Date/Time Associated Diagnosis [...] - 34 U/L 03/05/2022 7:49 AM CDT [facility] Protein Total 6.5 6.4 - 8.3 gm/dL 03/05/2022 7:49 AM CDT [facility] Albumin 4.0 3.2 - 4.6 gm/dL 03/05/2022 7:49 AM CDT [facility] Bilirubin Total 0.5 0.2 - 1.2 mg/dL 03/05/2022 7:49 AM CDT [facility] eGFR by CKD-EPI 72(L) >=90 mL/min/1.7 3 m2 03/05/2022 7:49 AM CDT [facility] Blood BLOOD SPECIMEN / Unknown Venipuncture / Unknown 03/05/2022 7:26 AM CDT 03/05/2022 7:30 AM CDT Nano Brooks HEAVY MACHINERY OPERATOR-CHAIRMAN AND CEO LAB - CHEMIS TRY ORDERABLES [facility] [address] [place] [address] from Last 3 Months or Most Recently Relevant to Health Maintenance Advance Directives Documents on File Type Date Recorded Patient Insurance Loss Adjuster Expl anation Adv Directive/Living Will/POA 04/05/2022 1:17 PM * Full Code (Latest Code Status on File) Date Activated Date Inactivated Comments 03/29/2022 4:43 PM 03/30/2022 4:21 PM Care Teams Car Runner Relationship Specialty Start Date End Date Miguel Santos MD [address] [place] [address] PCP - General Family Medicine 01/10/22 [place] [id number] [address] Orthopedic Surgery 01/10/22
--- OUTSIDE RECORDS SUMMARY | 2024-11-05 00:38 | XMS_ITS | Encounter Summary ---
Author Organization [facility] Address [address] [place] [address]. [place], [place] [address] [place] [address] Care Team Providers Care Senior Quality Manager Name Role Phone Scott Dowling MD Primary Care Provider Wander Nguyen MD Unavailable [phone] Miguel Santos MD Primary Care Provider Encounter Details Date Type Department Care Team (Late st Contact Info) Description 09/04/2016 Abstract [facility] AT [address] [address] Luis Angel Bliss MA Social History Tobacco Use Types Packs/Day Years Used Date Smoking Tobacco: Never Alcohol Use Standard Drinks/Week Comments Yes 0 (1 standard drink = 0.6 oz pur e alcohol) Socially Sex and Gender Information Value Date Recorded Sex Assigned at Not on file Legal Sex Male 11:35 PM CDT Gender Identity Male 11/12/2021 4:53 AM FREELANCE GRAPHIC DESIGNER Sexual Orientation Straight 11/12/2021 4: 53 AM FREELANCE GRAPHIC DESIGNER 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 [place] [address] 06/01/2025 10:20 AM CDT Office Visit [facility]ialty Care - [facility] [address] [place] [address] Javier Johnson DO [address] [place] [address] documented as of this encounter Procedures Procedure Name Priority Date/Time Associated Diagnosis Comments FOLATE (OUTSIDE LAB) Routine 12/09/2019 CBC (OUTSIDE LAB) Routine 12/09/2019 VITAMIN B-12 Routine 12/09/2019 PROSTATE SPECIFIC ANTIGEN,TOTAL Routine 12/09/2019 COMPREHENSIVE METABOLIC PANEL Routine 12/09/2019 LIPID PANEL Routine 12/09/2019 HEMOGLOBIN, GLYCOSYLATED Routine 12/09/2019 THYROXINE, TOTAL Routine 12/09/2019 VITAMIN D, 25 OH Routine 12/09/2019 GGT, GAMMA GLUTAMYLTRANSFERASE Routine 12/09/2019 IRON Routine 12/09/2019 CBC (OUTSIDE LAB) Routine 12/08/2018 COMPREHENSIVE METABOLIC PANEL Routine 12/08/2018 LIPID PANEL Routine 12/08/2018 THYROID STIM HORMONE TSH Routine 12/08/2018 GGT, GAMMA GLUTAMYLTRANSFERASE Routine 12/08/2018 CBC (OUTSIDE LAB) Routine 01/03/2018 PROSTATE SPECIFIC ANTIGEN,TOTAL Routine 01/03/2018 COMPREHENSIVE METABOLIC PANEL Routine 01/03/2018 LIPID PANEL Routine 01/03/2018 THYROID STIM HORMONE TSH Routine 01/03/2018 PHOSPHORUS, INORGANIC PHOSPHATE Routine 01/03/2018 GGT, GAMMA GLUTAMYLTRANSFERASE Routine 01/03/2018 URIC ACID BLOOD Routine 01/03/2018 CBC (OUTSIDE LAB) Routine 01/03/2017 PROSTATE SPECIFIC ANTIGEN,TOTAL Routine 01/03/2017 COMPREHENSIVE METABOLIC PANEL Routine 01/03/2017 LIPID PANEL Routine 01/03/2017 THYROID STIM HORMONE TSH Routine 01/03/2017 IRON Routine 01/03/2017 FOLATE (OUTSIDE LAB) Routine 08/01/2016 CBC (OUTSIDE LAB) Routine 08/01/2016 VITAMIN B-12 Routine 08/01/2016 IRON BINDING TEST Routine 08/01/2016 THYROXINE, TOTAL Routine 08/01/2016 THYROXINE, FREE (FT4) Routine 08/01/2016 THYROID STIM HORMONE TSH Routine 08/01/2016 IRON Routine 08/01/2016 documented in this encounter Results * VITAMIN D, 25 OH (12/09/2019) VITAMIN D 25 HYDROXY S/P/B 41.6 30.0 - 100 12/09/2019 [facility] Final Result * HEMOGLOBIN, GLYCOSYLATED (12/09/2019) HGB A1C 5.3 12/09/2019 [facility] Final Result * FOLATE (OUTSIDE LAB) (12/09/2019) FOLATE 20 >3.0 12/09/2019 [facility]-OUTSIDE/ABSTRACTED Final Result * VITAMIN B-12 (12/09/2019) VITAMIN B12 S/P/B 232-1,245 12/09/2019 [facility] Final Result * THYROXINE, TOTAL (12/09/2019) TOTAL T4 3.650 0.45 - 4.5 12/09/2019 [facility] Final Result * PROSTATE SPECIFIC ANTIGEN,TOTAL (12/09/2019) PSA 0.9 12/09/2019 [facility] Final Result * CBC (OUTSIDE LAB) (12/09/2019) Pathologist [facility] WBC 4.0 HGB 14.3 HCT 45.2 PLT 305 12/09/2019 [facility]-OUTSIDE/ABSTRACTED Final Result * LIPID PANEL (12/09/2019) Pathologist [facility] CHOLESTEROL 159 HDL 55 TRIGLYCERIDES 63 LDL (CALCULATED) 91 12/09/2019 [facility] Final Result * IRON (12/09/2019) [facility] IRON 78 38 - 169 12/09/2019 [facility] Final Result * GGT, GAMMA GLUTAMYLTRANSFERASE (12/09/2019) Pathologist [facility] GGT 17 0 - 65 12/09/2019 [facility] Final Result * COMPREHENSIVE METABOLIC PANEL (12/09/2019) Pathologist [facility] SODIUM S/P/B 143 POTASSIUM S/P/B 4.6 CO2 21 CHLORIDE S/P/B 103 GLUCOSE 84 mg/dL CALCIUM S/P/B 9.9 BUN 21 CREATININE S/P/B 1.28 0.7 - 1.3 ALKALINE PHOSPHATASE S/P/B 74 ALT 38 AST 55 BILIRUBIN TOTAL S/P/B 0.4 ALBUMIN S/P/B 4.7 3.5 - 5.0 TOTAL PROTEIN S/P/B 7.1 GLOBULIN 2.4 PHOSPHORUS 3.8 URIC ACID 6.5 12/09/2019 [facility] Final Result * GGT, GAMMA GLUTAMYLTRANSFERASE (12/08/2018) Pathologist [facility] GGT 16 12/08/2018 [facility] Final Result * THYROID STIM HORMONE, TSH (12/08/2018) TSH 3.420 12/08/2018 [facility] Final Result * CBC (OUTSIDE LAB) (12/08/2018) Pathologist [facility] WBC 4.8 HGB 13.7 HCT 41.3 PLT 294 12/08/2018 [facility]-OUTSIDE/ABSTRACTED Final Result * LIPID PANEL (12/08/2018) Pathologist [facility] CHOLESTEROL 185 HDL 62 TRIGLYCERIDES 53 LDL (CALCULATED) 112 12/08/2018 [facility] Final Result * COMPREHENSIVE METABOLIC PANEL (12/08/2018) Pathologist [facility] SODIUM S/P/B 144 POTASSIUM S/P/B 4.8 CHLORIDE S/P/B 104 GLUCOSE 84 mg/dL CALCIUM S/P/B 9.6 BUN 23 CREATININE S/P/B 1.11 0.7 - 1.3 ALKALINE PHOSPHATASE S/P/B 80 ALT 31 AST 49 BILIRUBIN TOTAL S/P/B 0.4 ALBUMIN S/P/B 4.5 3.5 - 5.0 TOTAL PROTEIN S/P/B 7.0 PHOSPHORUS 3.9 URIC ACID 6.1 12/08/2018 [facility] Final Result * PHOSPHORUS, INORGANIC PHOSPHATE (01/03/2018) Pathologist [facility] PHOSPHORUS 4.0 01/03/2018 [facility] Final Result * URIC ACID BLOOD (01/03/2018) Pathologist [facility] URIC ACID 5.8 01/03/2018 [facility] Final Result * GGT, GAMMA GLUTAMYLTRANSFERASE (01/03/2018) GGT 21 01/03/2018 [facility] Final Result * PROSTATE SPECIFIC ANTIGEN,TOTAL (01/03/2018) Pathologist [facility] PSA 0.7 01/03/2018 [facility] Final Result * THYROID STIM HORMONE, TSH (01/03/2018) Pathologist [facility] TSH 1.440 01/03/2018 [facility] Final Result * CBC (OUTSIDE LAB) (01/03/2018) Pathologist [facility] WBC 5.8 HGB 13.5 HCT 41.1 PLT 338 01/03/2018 [facility]-OUTSIDE/ABSTRACTED Final Result * LIPID PANEL (01/03/2018) Pathologist [facility] CHOLESTEROL 153 HDL 45 TRIGLYCERIDES 69 LDL (CALCULATED) 94 01/03/2018 [facility] Final Result * COMPREHENSIVE METABOLIC PANEL (01/03/2018) Pathologist [facility] SODIUM S/P/B 144 POTASSIUM S/P/B 4.8 CO2 24 CHLORIDE S/P/B 104 GLUCOSE 85 mg/dL CALCIUM S/P/B 9.9 BUN 22 CREATININE S/P/B 1.21 0.7 - 1.3 ALKALINE PHOSPHATASE S/P/B 95 ALT 36 AST 32 BILIRUBIN TOTAL S/P/B 0.4 ALBUMIN S/P/B 4.1 3.5 - 5.0 TOTAL PROTEIN S/P/B 6.9 GLOBULIN 2.8 01/03/2018 [facility] Edited Resul t - Final * IRON (01/03/2017) IRON 11 01/03/2017 [facility] Final Result * PROSTATE SPECIFIC ANTIGEN,TOTAL (01/03/2017) PSA 113.8 01/03/2017 [facility] Final Result * THYROID STIM HORMONE, TSH (01/03/2017) TSH 1.940 01/03/2017 [facility] Final Result * CBC (OUTSIDE LAB) (01/03/2017) WBC 121.9 HGB 12.3 HCT 37 PLT 259 01/03/2017 [facility]-OUTSIDE/ABSTRACTED Final Result * LIPID PANEL (01/03/2017) CHOLESTEROL 122 HDL 50 TRIGLYCERIDES 47 LDL (CALCULATED) 63 01/03/2017 [facility] Final Result * COMPREHENSIVE METABOLIC PANEL (01/03/2017) SODIUM S/P/B 138 POTASSIUM S/P/B 4.5 CO2 22 CHLORIDE S/P/B 100 GLUCOSE 99 CALCIUM S/P/B 8.8 BUN 20 CREATININE S/P/B 1.23 0.7 - 1.3 ALKALINE PHOSPHATASE S/P/B 72 ALT 24 AST 32 BILIRUBIN TOTAL S/P/B 1.0 ALBUMIN S/P/B 3.7 3.5 - 5.0 TOTAL PROTEIN S/P/B 6.2 GGT 16 PHOSPHORUS 2.3 URIC ACID 5.1 01/03/2017 [facility] Edited Resul t - Final * THYROXINE, FREE (FT4) (08/01/2016) Pathologist [facility] FREE T4 1.12 08/01/2016 [facility] Final Result * THYROXINE, TOTAL (08/01/2016) Pathologist [facility] TOTAL T4 6.7 08/01/2016 [facility] Final Result * THYROID STIM HORMONE, TSH (08/01/2016) Pathologist [facility] TSH 2.190 08/01/2016 [facility] Edited Resul t - Final * FOLATE (OUTSIDE LAB) (08/01/2016) Pathologist [facility] FOLATE >20 08/01/2016 us [facility]-OUTSIDE/ABSTRACTED Final Result * VITAMIN B-12 (08/01/2016) Pathologist [facility] VITAMIN B12 S/P/B 673 08/01/2016 us [facility] Final Result * IRON BINDING TEST (08/01/2016) Pathologist [facility] IRON BINDING CAPACITY 439 08/01/2016 [facility] Final Result * IRON (08/01/2016) IRON 64 08/01/2016 [facility] Final Result * CBC (OUTSIDE LAB) (08/01/2016) WBC 3.2 HGB 12.5 HCT 38.4 PLT 246 08/01/2016 [facility]TSIDE/ABSTRACTED Edite d Result - Final documented in this encounter Visit Diagnoses Not on filedocumented in this encounter Additional Health Concerns Infection Onset Date Last Indicated Resolved Time COVID-19 Rule Out 06/30/2020 06/30/2020 07/02/2020 1:26 AM CDT documented as of this encounter Care Teams Senior Quality Manager Relationship Specialty Start Date End Date Scott Dowling MD [address] [place] [address] PCP - General FAMILY PRACTICE 03/06/16 09/21/18 Miguel Santos MD [address] [facility] [address] [place], [place] [address] PCP - General FAMILY PRACTICE 09/22/18 Wander Nguyen MD [address] [facility] [address] [facility] [facility] [address] [place] [address] [place] Housing Manager CARDIOVASCULAR DISEASE 03/06/16 documented as of this encounter
--- OUTSIDE RECORDS SUMMARY | 2024-11-05 00:39 | XMS_ITS | Encounter Summary ---
Author Organization [facility] Address [address] [place] [address]. [place], [place] [address] [place] [address] Care Team Providers Care Ground Wirer Name Role Phone Wander Nguyen MD Unavailable [phone] Miguel Santos MD Primary Care Provider Encounter Details Date Type Department Care Team (Late Contact Info) Description 01/24/2022 [employer] Message Enc [place] [facility] [facility], [address] [phone] [facility], [facility] Provider lab results Social History Tobacco Use [...] CDT Gender Identity Male 11/12/2021 4:53 AM CASE BRIEFER Sexual Orientation Straight 11/12/2021 4: 53 AM CASE BRIEFER 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 [place] [address] 06/01/2025 10:20 AM CDT Office Visit [facility] Multispecialty Care - [facility] [address] [place] [address] Javier Johnson DO [address] [place] [address] documented as of this encounter Visit Diagnoses Not on filedocumented in this encounter Care Teams Ground Wirer Relationship Specialty Start Date End Date Miguel Santos MD [address] [place] [address] PCP - General FAMILY PRACTICE 09/22/18 Wander Nguyen MD [address] [place] [address] [place] Radiography Technician CARDIOVASCULAR DISEASE 03/06/16 documented as of this encounter
--- OUTSIDE RECORDS SUMMARY | 2024-11-05 00:39 | XMS_ITS | Encounter Summary ---
Author Organization [facility] Care Team Providers Care Calciner Feeder Name Role Phone No, Physician Primary Care Provider [phone] Miguel Santos MD Primary Care Provider Miguel Santos MD Primary Care Provider Encounter Details Date Type Department Care Team (Latest Contact Info) Description 11/05/2017 Orders Only [facility] ProviderRoxanna MD [address] [place] [address] Social History Tobacco Use Types Packs/Day Years Used Date Smoking Tobacco: Never Assessed Sex and Gender Information Value Date Recorded Sex Assigned at Not on file Legal Sex Male 9:09 AM CIVIL CAD TECH Gender Identity Male 02/23/2022 9:08 AM CDT Sexual Orientation Straight 02/23/2022 9: 08 AM CDT documented as of this encounter Plan of Treatment Not on file documented as of this encounter Procedures Procedure Name Priority Date/Time Associated Diagnosis Comments PROCEDURE - RESULT 11/05/2017 12 :00 AM CIVIL CAD TECH documented in this encounter Results * PROCEDURE - RESULT (11/05/2017 12:00 AM CIVIL CAD TECH) Narrative 11/05/2017 12:00 AM CIVIL CAD TECH Ordered by an unspecified provider. Historical Provider Final Res ult documented in this encounter Visit Diagnoses Not on filedocumented in this encounter Additional Health Concerns Infection Onset Date Last Indicated Resolved Time COVID: Suspected 10/21/2021 10/21/2021 10/21/2021 10:27 AM CIVIL CAD TECH COVID19 10/21/2021 10/21/2021 10/31/2021 3:05 AM CIVIL CAD TECH COVID: Recovered Comment:Added based on recent COVID infection. 10/31/2021 11/12/2021 02/28/2022 3:05 AM C DT documented as of this encounter Care Teams Calciner Feeder Relationship Specialty Start Date End Date No, Physician PCP - General 11/18/19 12/13/20 Miguel Santos MD PCP - General Family Practice 12/18/20 Miguel Santos MD PCP - General 12/14/20 12/17/20 documented as of this encounter
--- OUTSIDE RECORDS SUMMARY | 2024-11-05 00:39 | XMS_ITS | Encounter Summary ---
Author Organization [facility] Facility Care Team Providers Care Pilates Coordinator Name Role Phone No, Physician Primary Care Provider [phone] Miguel Santos MD Primary Care Provider Miguel Santos MD Primary Care Provider Encounter Details Date Type Department Care Team (Latest Contact Info) Description 11/24/2017 Orders Only [facility] ProviderRoxanna MD [address] [place] [address] Social History Tobacco Use Types Packs/Day Years Used Date Smoking Tobacco: Never Assessed Sex and Gender Information Value Date Recorded Sex Assigned at Not on file Legal Sex Male 9:09 AM DRY SANDER Gender Identity Male 02/23/2022 9:08 AM CDT Sexual Orientation Straight 02/23/2022 9: 08 AM CDT documented as of this encounter Plan of Treatment Not on file documented as of this encounter Procedures Procedure Name Priority Date/Time Associated Diagnosis Comments PROCEDURE - RESULT 11/24/2017 12 :00 AM DRY SANDER SCAN - LABS 11/24/2017 12:00 AM DRY SANDER documented in this encounter Results * PROCEDURE - RESULT (11/24/2017 12:00 AM DRY SANDER) Narrative 11/24/2017 12:00 AM DRY SANDER Ordered by an unspecified provider. Historical Provider Final Res ult * SCAN - LABS (11/24/2017 12:00 AM DRY SANDER) Narrative 11/24/2017 12:00 AM DRY SANDER Ordered by an unspecified provider. us Historical Provider Final Res ult documented in this encounter Visit Diagnoses Not on filedocumented in this encounter Additional Health Concerns Infection Onset Date Last Indicated Resolved Time COVID: Suspected 10/21/2021 10/21/2021 10/21/2021 10:27 AM DRY SANDER COVID19 10/21/2021 10/21/2021 10/31/2021 3:05 AM DRY SANDER COVID: Recovered Comment:Added based on recent COVID infection. 10/31/2021 11/12/2021 02/28/2022 3:05 AM C DT documented as of this encounter Care Teams Pilates Coordinator Relationship Specialty Start Date End Date No, Physician PCP - General 11/18/19 12/13/20 Miguel Santos MD PCP - General Family Practice 12/18/20 Miguel Santos MD PCP - General 12/14/20 12/17/20 documented as of this encounter
--- OUTSIDE RECORDS SUMMARY | 2024-11-05 00:39 | XMS_ITS ---
Author Organization Unknown Address [address], [place] [id number] Phone Care Team Providers Care Automotive Service Consultant Name Role Phone Corina Pierce Attending Unavailable Immunization Immunization Date Status Additional [...] preservative free, adsorbed 10/06/2003 Completed 113 CVX Results MERGED WITH [facility] ([place] PRE-EMPLOYME [place]) - Completed: 11/14/2021 10:13 LOINC: EXAMINATION: MERGED WITH [facility] ([place] PRE-EMPLOYMENT) PreemploymentCOMPARISON: 11/04/2016FINDINGS: Single frontal radiograph of the chest demonstrates normal lung expansion without consolidation, effusion, or pneumothorax. No bulky hilar adenopathy.Athletic calcification of the aorta.The cardiomediastinal contours are maintained.Heart size is normal. No acute or aggressive osseous abnormality.IMPRESSION: No radiographic evidence of active cardiopulmonary disease. Created and Electronically Signed by:Pradip Adams MD11/14/2021 10:33 Social History Type Status Start Date End Date Code Code Syst em Smoking History Never smoker (Never Smoked) [id number] SNOMED CT Sex Male Assessment You had [...] BACK WALL OF THORAX, INITIAL ENCOUNTER active [id number] SNOMED-CT ENCOUNTER FOR OTHER SPECIFIE D AFTERCARE active [id number] SNOMED-CT Allergies and Adverse Reactions Allergy Substance Reaction Severity Start Date Concern Status Co de Code System No Known Drug Allergy Mild Active No Known Drug Allergies Active 764564909 SNOMED-CT Plan of Treatment No Data Found Encounters Encounter Diagnosis Start Date Code Code Sys tem History and physical examination, pre-employment 11/14 [id number] SNOMED-CT Personal Care Team Section Performer Name Performer Role Active Date Inactive Da te Imaging Narrative Notes [facility] 11/14/2021 10:[address] [address] RADIOLOGY REPORT NAME: NUMBER: SEX: AGE: ADMIT: SERVICE: Type: FEMI LOPEZ [id number] 11/14/21 AX 2 DATE OF : 1960 M/R#: [id number] HOME PHONE: [phone] RM: CELL PHONE: [phone] ACCESSION NUMBER: [id number] [employer] [facility] ([place] PRE[place] COMPLETE: 11/14/2021 10:13 [facility] ATTENDING PHYSICIAN: Stan Arriaga SECOND PHYSICIAN: DICTATING PHYSICIAN: Pradip Adams MD PRIMARY CARE PHYSICIAN: Unsigned transcriptions represent a preliminary report and do not represent a medical or legal document [facility] [facility] INDICATIONS: Preemployment COMPARISON: 11/04/2016 FINDINGS: Single frontal radiograph of the chest demonstrates normal lung expansion without consolidation, effusion, or pneumothorax. No bulky hilar adenopathy. Athletic calcification of the aorta. The cardiomediastinal contours are maintained. Heart size is normal. No acute or aggressive osseous abnormality. IMPRESSION: No radiographic evidence of active cardiopulmonary disease. Created and Electronically Signed by: Pradip Adams MD 11/14/2021 10:33
--- OUTSIDE RECORDS SUMMARY | 2024-11-05 00:39 | XMS_ITS | Encounter Summary ---
Author Organization [facility] Facility Care Team Providers Care Slate Cutter Operator Name Role Phone No, Physician Primary Care Provider [phone] Miguel Santos MD Primary Care Provider Miguel Santos MD Primary Care Provider Encounter Details Date Type Department Care Team (Latest Contact Info) Description 11/13/2017 Orders Only [facility] CLINCONV ProviderRoxanna MD [address] [place] [address] Social History Tobacco Use Types Packs/Day Years Used Date Smoking Tobacco: Never Assessed Sex and Gender Information Value Date Recorded Sex Assigned at Not on file Legal Sex Male 9:09 AM MANAGER RELATIONSHIP Gender Identity Male 02/23/2022 9:08 AM CDT Sexual Orientation Straight 02/23/2022 9: 08 AM CDT documented as of this encounter Plan of Treatment Not on file documented as of this encounter Procedures Procedure Name Priority Date/Time Associated Diagnosis Comments PROCEDURE - RESULT 11/13/2017 12 :00 AM MANAGER RELATIONSHIP documented in this encounter Results * PROCEDURE - RESULT (11/13/2017 12:00 AM MANAGER RELATIONSHIP) Narrative 11/13/2017 12:00 AM MANAGER RELATIONSHIP Ordered by an unspecified provider. Historical Provider Final Res ult documented in this encounter Visit Diagnoses Not on filedocumented in this encounter Additional Health Concerns Infection Onset Date Last Indicated Resolved Time COVID: Suspected 10/21/2021 10/21/2021 10/21/2021 10:27 AM MANAGER RELATIONSHIP COVID19 10/21/2021 10/21/2021 10/31/2021 3:05 AM MANAGER RELATIONSHIP COVID: Recovered Comment:Added based on recent COVID infection. 10/31/2021 11/12/2021 02/28/2022 3:05 AM C DT documented as of this encounter Care Teams Slate Cutter Operator Relationship Specialty Start Date End Date No, Physician PCP - General 11/18/19 12/13/20 Miguel Santos MD PCP - General Family Practice 12/18/20 Miguel Santos MD PCP - General 12/14/20 12/17/20 documented as of this encounter
--- OUTSIDE RECORDS SUMMARY | 2024-11-05 00:39 | XMS_ITS | Encounter Summary ---
Author Organization [facility] Address [address] [place] [address]. [place], [place] [address] [place] [address] Care Team Providers Care Shaker Washer Name Role Phone Wander Nguyen MD Unavailable Miguel Santos MD Primary Care Provider Encounter Details Date Type Department Care Team (Late Contact Info) Description 10/25/2020 [facility] [address] [address] Luis Angel Bliss MA Social History Tobacco Use Types Packs/Day Years Used Date Smoking Tobacco: Never Smokeless Tobacco: Never Alcohol Use Standard Drinks/Week Comments Yes 0 (1 standard drink = 0.6 oz pur e alcohol) Socially Sex and Gender Information Value Date Recorded Sex Assigned at Not on file Legal Sex Male 11:35 PM CDT Gender Identity Male 11/12/2021 4:53 AM SAMPLE TAILOR Sexual Orientation Straight 11/12/2021 4: 53 AM SAMPLE TAILOR 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 Yes 10/24/2020 11:04 AM SAMPLE TAILOR documented as of this encounter Plan of Treatment Upcoming Encounters Date Type Department Care Team (Late Contact Info) Description 01/07/2025 10:30 AM CDT [facility] [address] [address] Wander Nguyen MD [address] [place] [address] 06/01/2025 10:20 AM CDT Office Visit [facility] - [facility] [address] [place] [address] Javier Johnson DO [address] [place] [address] documented as of this encounter Procedures Procedure Name Priority Date/Time Associated Diagnosis Comments COMPREHENSIVE METABOLIC PANEL Routine 01/21/2023 LIPID PANEL Routine 01/21/2023 CBC, MANUAL DIFF Routine 01/21/2023 BASIC METABOLIC PANEL Routine 03/11/2022 CBC (OUTSIDE LAB) Routine 12/07/2020 PROSTATE SPECIFIC ANTIGEN,TOTAL Routine 12/07/2020 COMPREHENSIVE METABOLIC PANEL Routine 12/07/2020 LIPID PANEL Routine 12/07/2020 THYROID STIM HORMONE TSH Routine 12/07/2020 PHOSPHORUS, INORGANIC PHOSPHATE Routine 12/07/2020 VITAMIN D, 25 OH Routine 12/07/2020 GGT, GAMMA GLUTAMYLTRANSFERASE Routine 12/07/2020 IRON Routine 12/07/2020 URIC ACID BLOOD Routine 12/07/2020 COMPREHENSIVE METABOLIC PANEL Routine 09/20/2020 documented in this encounter Results * COMPREHENSIVE METABOLIC PANEL (01/21/2023) SODIUM S/P/B 144 GLUCOSE 83 mg/dL AST 42 BUN 21 CREATININE S/P/B 1.25 0.7 - 1.3 CALCIUM S/P/B 9.7 POTASSIUM S/P/B 4.8 CHLORIDE S/P/B 106 ALT 28 GFR ESTIMATE 64 Narrative Resulting Agency Comment us Default History Genericprovider LABORATORY Edited Result - Final * LIPID PANEL (01/21/2023) Pathologist [facility] CHOLESTEROL 143 TRIGLYCERIDES 50 HDL 51 LDL (CALCULATED) 81 Narrative Resulting Agency Comment us Default History Genericprovider LABORATORY Edited Result - Final * CBC, MANUAL DIFF (01/21/2023) Pathologist [facility] WBC 3.9 HGB 14.6 HCT 43.3 PLT 278 Narrative Resulting Agency Comment us Default History Genericprovider LABORATORY Edited Result - Final * BASIC METABOLIC PANEL (03/11/2022) Pathologist [facility] SODIUM S/P/B 141 POTASSIUM S/P/B 4.9 CO2 26 CHLORIDE S/P/B 105 GLUCOSE 87 mg/dL CALCIUM S/P/B 9.6 BUN 23 CREATININE S/P/B 1.20 0.7 - 1.3 EGFR NON-AFR. AMER. 68 <=90 03/11/2022 us Doc [facility] Abstract LABORATORY Final Result * URIC ACID BLOOD (12/07/2020) Pathologist [facility] URIC ACID 4.8 12/07/2020 us Doc [facility] Abstract LABORATORY Final Result * PHOSPHORUS, INORGANIC PHOSPHATE (12/07/2020) Pathologist [facility] PHOSPHORUS 4.1 12/07/2020 us Doc [facility] Abstract LABORATORY Final Result * VITAMIN D, 25 OH (12/07/2020) Pathologist [facility] VITAMIN D 25 HYDROXY S/P/B 57.6 12/07/2020 us Doc [facility] Abstract LABORATORY Final Result * THYROID STIM HORMONE, TSH (12/07/2020) Pathologist [facility] TSH 2.230 0.450 - 4.500 12/07/2020 us Doc [facility] LABORATORY Final Result * PROSTATE SPECIFIC ANTIGEN,TOTAL (12/07/2020) Pathologist [facility] PSA 1.3 12/07/2020 us Doc [facility] Abstract LABORATORY Final Result * CBC (OUTSIDE LAB) (12/07/2020) Pathologist [facility] WBC 3.2 HGB 13.4 HCT 42.4 PLT 276 12/07/2020 us Doc [facility] Abstract LAB-OUTSIDE/ABSTRACTED Final Result * LIPID PANEL (12/07/2020) Pathologist [facility] CHOLESTEROL 154 HDL 66 TRIGLYCERIDES 38 LDL (CALCULATED) 79 12/07/2020 us Doc [facility] LABORATORY Final Result * IRON (12/07/2020) Pathologist [facility] IRON 48 38 - 169 12/07/2020 us Doc [facility] LABORATORY Final Result * GGT, GAMMA GLUTAMYLTRANSFERASE (12/07/2020) Pathologist [facility] GGT 12 0 - 65 12/07/2020 us Doc [facility] Abstract LABORATORY Final Result * COMPREHENSIVE METABOLIC PANEL (12/07/2020) SODIUM S/P/B 142 POTASSIUM S/P/B 4.8 CO2 24 CHLORIDE S/P/B 104 GLUCOSE 79 mg/dL CALCIUM S/P/B 9.8 BUN 24 CREATININE S/P/B 1.24 0.7 - 1.3 ALKALINE PHOSPHATASE S/P/B 73 ALT 32 AST 47 BILIRUBIN TOTAL S/P/B 0.3 ALBUMIN S/P/B 4.3 3.5 - 5.0 TOTAL PROTEIN S/P/B 6.7 GLOBULIN 2.4 12/07/2020 us Doc [facility] Abstract LABORATORY Final Result * COMPREHENSIVE METABOLIC PANEL (09/20/2020) SODIUM S/P/B 138 POTASSIUM S/P/B 4.6 CO2 29 CHLORIDE S/P/B 105 GLUCOSE 68 mg/dL CALCIUM S/P/B 9.4 BUN 21 CREATININE S/P/B 1.07 0.7 - 1.3 EGFR AFR. AMER. 86 <=90 EGFR NON-AFR. AMER. 74 <=90 ALKALINE PHOSPHATASE S/P/B 73 ALT 33 AST 44 BILIRUBIN TOTAL S/P/B 0.5 ALBUMIN S/P/B 4.2 3.5 - 5.0 TOTAL PROTEIN S/P/B 6.5 GLOBULIN 2.3 09/20/2020 us Doc [facility] Abstract LABORATORY Final Result documented in this encounter Visit Diagnoses Not on filedocumented in this encounter Care Teams Shaker Washer Relationship Specialty Start Date End Date Miguel Santos MD [facility]. [address] [address] PCP - General FAMILY PRACTICE 09/22/18 Wander Nguyen MD [address] [facility] [place] [address] Sarles Vegetable Sorter CARDIOVASCULAR DISEASE 03/06/16 documented as of this encounter
--- OUTSIDE RECORDS SUMMARY | 2024-11-05 00:39 | XMS_ITS | Continuity of Care Document ---
Author Organization [facility] Address [address] [place] [address] Phone Care Team Providers Care Clinical Support Nurse Name Role Phone Unavailable Unavailable Unavailable Procedures Procedure Date Balance Transfer Work Comp Advance Directives Directive Yes / No Effective Date File Name No Information Encounters Encounter Description Practice Location Reason(s) For Visit Diagnoses Date Provider Providers Copied on Encounter [email or web address], [address], [place], [place], [id number], [place] tel:[phone] [email or web address] No Information 6 No Information Family History Family Member Type Diagnosis Age At Onset No Information Payers Payer name Insurance type Covered libertarian ID Authoriza tion(s) No Information Social History Type Description Quantity Date Captured Comments Sex Male Smoking Status No Information Chief Complaint And Reason For Visit No Information Reason For Referral Reason For Referral No Information History Of Present Illness Encounter Date Complaint History Of Prese nt Illness No Information Functional Status Date Functional Assessmen t No Information Instructions Date Instruction Additional Infor mation No Information Assessments Type Assessment Date No Information Patient Care Teams Name Effective Dates (start - stop) Status Members No Information
--- OUTSIDE RECORDS SUMMARY | 2024-11-05 00:39 | XMS_ITS | Encounter Summary ---
Author Organization [facility] Facility Care Team Providers Care Missile Pad Mechanic Name Role Phone No, Physician Primary Care Provider Miguel Santos MD Primary Care Provider Miguel Santos MD Primary Care Provider Encounter Details Date Type Department Care Team (Latest Contact Info) Description 10/31/2017 Orders Only [facility] CLINCONV Provider, MD Roxanna [address] [place] [address] Social History Tobacco Use Types Packs/Day Years Used Date Smoking Tobacco: Never Assessed Sex and Gender Information Value Date Recorded Sex Assigned at Not on file Legal Sex Male 9:09 AM GENERAL ENGINEER Gender Identity Male 02/23/2022 9:08 AM CDT Sexual Orientation Straight 02/23/2022 9: 08 AM CDT documented as of this encounter Plan of Treatment Not on file documented as of this encounter Procedures Procedure Name Priority Date/Time Associated Diagnosis Comments SCAN - LABS 10/31/2017 12:00 AM GENERAL ENGINEER SCAN - LABS 10/31/2017 12:00 AM GENERAL ENGINEER SCAN - LABS 10/31/2017 12:00 AM GENERAL ENGINEER SCAN - LABS 10/31/2017 12:00 AM GENERAL ENGINEER documented in this encounter Results * SCAN - LABS (10/31/2017 12:00 AM GENERAL ENGINEER) Narrative 10/31/2017 12:00 AM GENERAL ENGINEER Ordered by an unspecified provider. Historical Provider MD Final Res ult * SCAN - LABS (10/31/2017 12:00 AM GENERAL ENGINEER) Narrative 10/31/2017 12:00 AM GENERAL ENGINEER Ordered by an unspecified provider. Historical Provider MD Final Res ult * SCAN - LABS (10/31/2017 12:00 AM GENERAL ENGINEER) Narrative 10/31/2017 12:00 AM GENERAL ENGINEER Ordered by an unspecified provider. Historical Provider MD Final Res ult * SCAN - LABS (10/31/2017 12:00 AM GENERAL ENGINEER) Narrative 10/31/2017 12:00 AM GENERAL ENGINEER Ordered by an unspecified provider. [facility] Provider Final Res ult documented in this encounter Visit Diagnoses Not on filedocumented in this encounter Additional Health Concerns Infection Onset Date Last Indicated Resolved Time COVID: Suspected 10/21/2021 10/21/2021 10/21/2021 10:27 AM GENERAL ENGINEER COVID19 10/21/2021 10/21/2021 10/31/2021 3:05 AM GENERAL ENGINEER COVID: Recovered Comment:Added based on recent COVID infection. 10/31/2021 11/12/2021 02/28/2022 3:05 AM C DT documented as of this encounter Care Teams Missile Pad Mechanic Relationship Specialty Start Date End Date No, Physician PCP - General 11/18/19 12/13/20 Miguel Santos MD PCP - General Family Practice 12/18/20 Miguel Santos MD PCP - General 12/14/20 12/17/20 documented as of this encounter
--- OUTSIDE RECORDS SUMMARY | 2024-11-05 00:39 | XMS_ITS | Encounter Summary ---
Author Organization [facility] Facility Care Team Providers Care Store Stock Associate Name Role Phone No, Physician Primary Care Provider [phone] Miguel Santos MD Primary Care Provider Miguel Santos MD Primary Care Provider Encounter Details Date Type Department Care Team (Latest Contact Info) Description 12/03/2017 Orders Only [facility] CLINCONV ProviderRoxanna MD [address] [place] [address] Social History Tobacco Use Types Packs/Day Years Used Date Smoking Tobacco: Never Assessed Sex and Gender Information Value Date Recorded Sex Assigned at Not on file Legal Sex Male 9:09 AM FILLING AND PACKING SUPERVISOR Gender Identity Male 02/23/2022 9:08 AM CDT Sexual Orientation Straight 02/23/2022 9: 08 AM CDT documented as of this encounter Plan of Treatment Not on file documented as of this encounter Procedures Procedure Name Priority Date/Time Associated Diagnosis Comments SCAN - LABS 12/05/2017 12:00 AM FILLING AND PACKING SUPERVISOR documented in this encounter Results * SCAN - LABS (12/05/2017 12:00 AM FILLING AND PACKING SUPERVISOR) Narrative 12/05/2017 12:00 AM FILLING AND PACKING SUPERVISOR Ordered by an unspecified provider. Historical Provider Final Res ult documented in this encounter Visit Diagnoses Not on filedocumented in this encounter Additional Health Concerns Infection Onset Date Last Indicated Resolved Time COVID: Suspected 10/21/2021 10/21/2021 10/21/2021 10:27 AM FILLING AND PACKING SUPERVISOR COVID19 10/21/2021 10/21/2021 10/31/2021 3:05 AM FILLING AND PACKING SUPERVISOR COVID: Recovered Comment:Added based on recent COVID infection. 10/31/2021 11/12/2021 02/28/2022 3:05 AM C DT documented as of this encounter Care Teams Store Stock Associate Relationship Specialty Start Date End Date No, Physician PCP - General 11/18/19 12/13/20 Miguel Santos MD PCP - General Family Practice 12/18/20 Miguel Santos MD PCP - General 12/14/20 12/17/20 documented as of this encounter
[2024-11-05 08:42] VITALS: BP 146/98; PULSE 70; RESP 20; TEMP 36.1; O2SAT 94; BMI 30.6
[2024-11-05] MEDS: LACTATED RINGERS 1,000 ML 150 ML IV CONT (08:51)
--- NOTE | 2024-11-05 09:11 | WPDANESEPPF ---
Anes - Initial Pre Proc Eval Procedure: Operation Date: 11/05/24 09:30 Proposed Procedures p Colonoscopy - Waylon Manriquez MD Date/Time: 11/05/24 09:11 Surgeon: Waylon Manriquez MD Pre Op Diagnosis: hx of colon polyps Patient Data Age: 64 Gender: M Height: 1.78 m Weight: 96.8 kg Last Vital Signs Temp 36.1 C L 11/05/24 08:42 Pulse 70 11/05/24 08:42 Resp 20 11/05/24 08:42 BP 146/98 H 11/05/24 08:42 Pulse Ox 94 11/05/24 08:42 O2 Del Method Room Air 11/05/24 08:42 Allergies Allergy/AdvReac Type Severity Reaction Status Date / Time No Known Allergies Allergy Unknown Verified 11/05/24 08:40 Home Medications ?Medication ?Instructions ?Recorded ?Confirmed ?Type calcium carbonate (Calcium 600) 600 mg PO DAILY 03/12/21 11/05/24 History multivitamin (Multiple Vitamins 1 tablet PO DAILY 03/12/21 11/05/24 History tablet) valacyclovir 1 gram tablet 1,000 mg PO BID PRN cold sores 10/13/23 11/05/24 History oxybutynin chloride 5 mg 5 mg PO DAILY #90 tabs 04/05/24 11/05/24 Rx tablet,extended release 24 hr lisinopril 5 mg tablet 5 mg PO DAILY #90 tabs 05/03/24 11/05/24 Rx meloxicam 7.5 mg tablet 7.5 mg PO DAILY #90 tabs 05/03/24 11/05/24 Rx montelukast 10 mg tablet 10 mg PO DAILY #90 tabs 05/03/24 11/05/24 Rx citalopram 20 mg tablet 20 mg PO DAILY #90 tabs 06/21/24 11/05/24 Rx finasteride 5 mg tablet 5 mg PO DAILY #90 tabs 06/21/24 11/05/24 Rx fluticasone propionate 50 1 spray intranasal DAILY #16 grams 08/23/24 11/05/24 Rx mcg/actuation nasal spray,suspension (Allergy Relief (fluticasone)) simvastatin 40 mg tablet 40 mg PO QHS #90 tabs 08/23/24 11/05/24 Rx Patient hx anesthesia problems: none Family hx anesthesia problems: none Results Review: All pre-operative results and documents have been reviewed as part of the pre-operative evaluation. [facility] Past Medical History Medical History Encounter for colonoscopy due to history of colonic polyp Recurrent herpes labialis Elevated lipids KASH (obstructive sleep apnea) Unspecified osteoarthritis, unspecified site Essential (primary) hypertension Environmental allergies BPH NOS w/o ur obs/LUTS Depression Dyslipidemia Hypogonadism in male Surgical History Surgical History [place] teeth extracted (~1979) History of knee surgery (~11/2015) left knee - 11/2015, left knee redone-03/24/22 History of bunionectomy (~1986) around History of vasectomy (~1998) around 1989 Family History Family History Other Family history of cardiovascular disease Hypertension Social History Social History Smoking status: Never smoker Second hand tobacco smoke exposure: No Alcohol intake: current Alcohol use details: consumes 2 drinks of beer or wine occasionally Substance use: never Substance use type: does not use Lack of Transportation: No Lack of Food: Never True Current Housing: I Have Housing Concerned About Future Housing: No Difficulty Paying Gas/Electric Bills: No Difficulty Paying for Meds: No Currently Unemployed: No Education: Bachelor's Degree Difficulty w/ Childcare or Family Care: No Gender identity (if verbalized by the patient): Male Anes - Eval Final PreProcedure Day of Procedure 11/05/24 09:11 Patient weight: obese Heart: regular rate and rhythm Lungs: clear to auscultation Airway: Mallampati scale class II Neurological: alert and oriented Last oral intake: >/= 8 hours ASA classification: III Emergent: no Anesthetic plan: proceed Anesthesia type and monitoring: general GIVS and standard monitoring Results Review: All pre-operative results and documents have been reviewed as part of the pre-operative evaluation. Informed Consent: The patient's anesthetic plan and its attendant risks and benefits were discussed with the patient/family/POA. Questions were solicited and answers provided to the satisfaction of the patient/family/POA.
--- NOTE | 2024-11-05 09:23 | P.HP_ITS ---
History of Present Illness History of Present Illness Consent: Risks, benefits, and alternatives have been discussed and questions answered. Patient agrees to proceed with procedure. Chief complaint: hx of colon polyps Narrative: Lexa Wilkerson is a 64 year old male with colon polyp in 2019 Review of Systems Review of Systems: All systems reviewed & are unremarkable except as noted in HPI and below PMFSH Past Medical History Medical History (Updated 11/05/24 @ 09:24 by Waylon Manriquez MD) Colon polyp Encounter for colonoscopy due to history of colonic polyp Recurrent herpes labialis Elevated lipids KASH (obstructive sleep apnea) Unspecified osteoarthritis, unspecified site Essential (primary) hypertension Environmental allergies BPH NOS w/o ur obs/LUTS Depression Dyslipidemia Hypogonadism in male Surgical History Surgical History [place] teeth extracted (~1979) History of knee surgery (~11/2015) left knee - 11/2015, left knee redone-03/24/22 History of bunionectomy (~1986) around History of vasectomy (~1998) around 1989 Family History Family History Other Family history of cardiovascular disease Hypertension Social History Social History Smoking status: Never smoker Second hand tobacco smoke exposure: No Alcohol intake: current Alcohol use details: consumes 2 drinks of beer or wine occasionally Substance use: never Substance use type: does not use Lack of Transportation: No Lack of Food: Never True Current Housing: I Have Housing Concerned About Future Housing: No Difficulty Paying Gas/Electric Bills: No Difficulty Paying for Meds: No Currently Unemployed: No Education: Bachelor's Degree Difficulty w/ Childcare or Family Care: No Gender identity (if verbalized by the patient): Male Meds Home Medications and Allergies Home Medications ?Medication ?Instructions ?Recorded ?Confirmed ?Type calcium carbonate (Calcium 600) 600 mg PO DAILY 03/12/21 11/05/24 History multivitamin (Multiple Vitamins 1 tablet PO DAILY 03/12/21 11/05/24 History tablet) valacyclovir 1 gram tablet 1,000 mg PO BID PRN cold sores 01/08/24 01/31/25 History oxybutynin chloride 5 mg 5 mg PO DAILY #90 tabs 04/05/24 11/05/24 Rx tablet,extended release 24 hr lisinopril 5 mg tablet 5 mg PO DAILY #90 tabs 05/03/24 11/05/24 Rx meloxicam 7.5 mg tablet 7.5 mg PO DAILY #90 tabs 05/03/24 11/05/24 Rx montelukast 10 mg tablet 10 mg PO DAILY #90 tabs 05/03/24 11/05/24 Rx citalopram 20 mg tablet 20 mg PO DAILY #90 tabs 06/21/24 11/05/24 Rx finasteride 5 mg tablet 5 mg PO DAILY #90 tabs 06/21/24 11/05/24 Rx fluticasone propionate 50 1 spray intranasal DAILY #16 grams 08/23/24 11/05/24 Rx mcg/actuation nasal spray,suspension (Allergy Relief (fluticasone)) simvastatin 40 mg tablet 40 mg PO QHS #90 tabs 08/23/24 11/05/24 Rx Allergies Allergy/AdvReac Type Severity Reaction Status Date / Time No Known Allergies Allergy Unknown Verified 11/05/24 08:40 Vital Signs Vital Signs - 24 hr 11/05/24 08:42 Temperature 96.9 F L Pulse Rate 70 Respiratory Rate 20 Blood Pressure 146/98 H Pulse Oximetry 94 Oxygen Delivery Room Air Exam Const: General: comfortable and no acute distress HENMT: Face/Nose/Sinus: Normal nares present Eyes: General: appearance normal, both eyes and all related structures Neck: Neck: no JVD Resp: Auscultation: clear to auscultation bilaterally Cardio: Rate: regular rate Rhythm: regular rhythm GI: Inspection: non-distended GI Palp: Yes Soft to palpation Skin: General skin exam: normal color Neuro: Speech: normal speech Extrem: General: normal to inspection Psych: Mental Status: mental status grossly normal Assessment and Plan Assessment and plan (1) Colon polyp: Code(s): K63.5 - Polyp of colon Status: Acute Assessment and Plan: colonoscopy
[2024-11-05 09:45] VITALS: BP 100/68; PULSE 71; RESP 20; O2SAT 96
[2024-11-05 09:54] VITALS: BP 104/69; PULSE 56; RESP 16; O2SAT 96
[2024-11-05 10:04] VITALS: BP 122/85; PULSE 63; RESP 16; O2SAT 99
== END 2024-11-05 10:20 | disposition home or self-care (01) ==
PROVIDERS: PCP Family Medicine; Referring Provider Nurse Practitioner Family; Visit Provider Internal Medicine Gastroenterology
PROC: 0DJD8ZZ Inspection of Lower Intestinal Tract, Via Natural or Artificial Opening Endoscopic (ICD-10-PCS; CPT 45378; principal; 2024-11-05 09:30)
DX: Z12.11 Encounter for screening for malignant neoplasm of colon (principal); K64.8 Other hemorrhoids; K57.30 Diverticulosis of large intestine without perforation or abscess without bleeding; N40.0 Benign prostatic hyperplasia without lower urinary tract symptoms; I10 Essential (primary) hypertension; E29.1 Testicular hypofunction; G47.33 Obstructive sleep apnea (adult) (pediatric); F32.A Depression, unspecified; M19.90 Unspecified osteoarthritis, unspecified site; E66.9 Obesity, unspecified; Z68.30 Body mass index [BMI] 30.0-30.9, adult; Z98.890 Other specified postprocedural states; Z86.0100 Personal history of colon polyps, unspecified; Z82.49 Family history of ischemic heart disease and other diseases of the circulatory system
CPT/HCPCS: 45378; J2003; J2704; J7120